=== PATIENT | female | born 1950 | race American Indian/Alaskan Native ===

== ENCOUNTER 2018-02-16 06:23 | Inpatient (IN) | payer MEDICARE, MEDICAID ==
[2018-02-13 09:13] VITALS: BMI 22.6
[2018-02-16] MEDS ORDERED: Succinylcholine 200 mg/10 ml Inj IV ONE (07:09)
[2018-02-16] MEDS ORDERED: Rocuronium 10 mg/ml (5 ml) ONE (07:09)
[2018-02-16] MEDS ORDERED: Propofol 10 mg/ml Inj (20 ML) ONE (07:09)
[2018-02-16] MEDS ORDERED: Neostigmine 1:1000 (1 mg/ml) Inj ONE (07:10)
[2018-02-16] MEDS ORDERED: Lidocaine 4% (Laryng-O-Jet) Kit MM ONE (07:10)
[2018-02-16] MEDS ORDERED: Bacitracin Ointment 30 GM TUBE ONE (07:14)
[2018-02-16] MEDS ORDERED: Absorbable Gelatin Sponge Size 12-7 ONE (07:14)
[2018-02-16] MEDS ORDERED: Thrombin Topical 5,000 Int Units Spray Kit ONE (07:15)
--- NOTE | 2018-02-16 07:15 | CP.PCM.HP ---
History of Present Illness - History of Present Illness History of Present Illness: PMD: Dr Clayton Chief complaint: Left hiop pain The patient was seen and examined in the SDS unit HPI: This is a 67 years old female with hx of HTN, HIV and Osteoarthritis of the left hip. She has failed conservative treatment rot the osteoarthritis which included Physical therapy, Epidural and Analgesics. She has decided for the s urgical treatment of Left Total Hip replacement. PMH: HTN; Osteoporesis; HIV+ve, Osteoarthritis of the left hip; CVA with no sequelas; Cataract; back pain; Gastritis; left hand Neuropathy? PSH: Epidural SH: Former smoker; No illegal drug use; No alcohol FH: States: No known family hx Allergies: PCN Medication: Reviewed Present on Admission - Present on Admission Any Indicators Present on Admission: No History of DVT/PE: No History of Uncontrolled Diabetes: No Urinary Catheter: No Decubitus Ulcer Present: No Review of Systems - Constitutional Constitutional: absent: Anorexia, Chills, Fatigue, Fever, Headache - EENT Eyes: Requires Corrective Lenses. absent: Blurred Vision, Diplopia, Floaters Ears: absent: Decreased Hearing, Ear Discharge, Tinnitus Nose/Mouth/Throat: absent: Epistaxis, Nasal Congestion, Nasal Discharge, Sinus Pain, Sinus Pressure - Cardiovascular Cardiovascular: absent: Chest Pain, Dyspnea, Edema - Respiratory Respiratory: absent: Cough, Dyspnea, Wheezing - Gastrointestinal Gastrointestinal: absent: Abdominal Pain, Constipation, Diarrhea, Nausea, Vomiting - Genitourinary Genitourinary: absent: Dysuria, Flank Pain, Urinary Frequency - Musculoskeletal Musculoskeletal: Arthralgias, Back Pain. absent: Numbness - Integumentary Integumentary: absent: Pruritus, Rash, Skin Ulcer, Sores, Striae, Swelling - Neurological Neurological: absent: Confusion, Dizziness, Focal Weakness, Headaches - Psychiatric Psychiatric: absent: Anxiety, Depression, Panic Attacks - Endocrine Endocrine: absent: Palpitations, Polydipsia, Polyphagia, Polyuria - Hematologic/Lymphatic Hematologic: absent: Easy Bleeding, Easy Bruising Past Patient History - Past Medical History & Family History Past Medical History?: Yes - Past Social History Smoking Status: Former Smoker Chewing Tobacco Use: No Cigar Use: No - CARDIAC Hx Cardiac Disorders: Yes Hx Hypertension: Yes - PULMONARY Hx Respiratory Disorders: No - NEUROLOGICAL Hx Neurological Disorder: Yes HX Cerebrovascular Accident: Yes (2016--no problems) - HEENT Hx HEENT Problems: Yes Hx Cataracts: Yes - RENAL Hx Chronic Kidney Disease: No - ENDOCRINE/METABOLIC Hx Endocrine Disorders: No - HEMATOLOGICAL/ONCOLOGICAL Hx Blood Disorders: Yes Hx Blood Transfusions: No Hx Human Immunodeficiency Virus (HIV): Yes - INTEGUMENTARY Hx Dermatological Problems: No - MUSCULOSKELETAL/RHEUMATOLOGICAL Hx Musculoskeletal Disorders: Yes Hx Arthritis: (left hand) Hx Back Pain: Yes (lower) Hx Osteoporosis: Yes - GASTROINTESTINAL Hx Gastrointestinal Disorders: Yes Hx Gastritis: Yes - GENITOURINARY/GYNECOLOGICAL Hx Genitourinary Disorders: No - PSYCHIATRIC Hx Emotional Abuse: No Hx Physical Abuse: No - SURGICAL HISTORY Hx Surgeries: Yes Other/Comment: epidurals - ANESTHESIA Hx Anesthesia: Yes Hx Anesthesia Reactions: No Has any member of the family had a problem w/ anesthesia?: No Meds Allergies/Adverse Reactions: Allergies Allergy/AdvReac Type Severity Reaction Status Date / Time Penicillins Allergy SWELLING Verified 02/16/18 06:37 Physical Exam - Constitutional Appears: No Acute Distress - Head Exam Head Exam: ATRAUMATIC, NORMAL INSPECTION, NORMOCEPHALIC - Eye Exam Eye Exam: EOMI, Normal appearance Pupil Exam: NORMAL ACCOMODATION, PERRL - ENT Exam ENT Exam: Mucous Membranes Moist, Normal Exam, Normal External Ear Exam - Neck Exam Neck exam: Positive for: Full Rom, Normal Inspection. Negative for: Lymphadenopathy, Tenderness - Respiratory Exam Respiratory Exam: Clear to Auscultation Bilateral. absent: Rales, Rhonchi, Wheezes - Cardiovascular Exam Cardiovascular Exam: REGULAR RHYTHM, RRR, +S1, +S2. absent: Gallop, JVD - GI/Abdominal Exam GI & Abdominal Exam: Normal Bowel Sounds, Soft. absent: Mass, Organomegaly, Tenderness - Rectal Exam Rectal Exam: Deferred - Extremities Exam Extremities exam: Positive for: full ROM, normal inspection. Negative for: calf tenderness, pedal edema - Back Exam Back exam: FULL ROM, NORMAL INSPECTION. absent: CVA tenderness (L), CVA tenderness (R) - Neurological Exam Neurological exam: Alert, CN II-XII Intact, Oriented x3, Reflexes Normal - Psychiatric Exam Psychiatric exam: Normal Affect, Normal Mood - Skin Skin Exam: Dry, Intact, Normal Color, Warm Results - Vital Signs Recent Vital Signs: Last Vital Signs Temp 97.8 F 02/16/18 07:06 Pulse 69 02/16/18 07:11 Resp 18 02/16/18 07:06 BP 129/75 02/16/18 07:06 Pulse Ox 97 02/16/18 07:06 - Labs Result Diagrams: 02/16/18 07:16 Assessment & Plan - Assessment and Plan (Free Text) Assessment: #. Osteoarthritis of the left Hip #. HTN #. HIV #. Osteoporesis Plan: 67 years old female with hx of HTN, HIV and Osteoarthritis of the left hip. She has failed conservative treatment rot the osteoarthritis which included Physical therapy, Epidural and Analgesics. She has decided for the surgical treatment of Left Total Hip replacement. #. Osteoarthritis of the left Hip - Consult Orthopedic Dr Su - Orthopedic Management - Pain Management - OT/PT #. HTN - Enalapril/HCTZ to start post surgery - Metoprolol - follow Blood Pressure #. HIV+ve - Etravirine/Raltegravir post surgery #. Alendranate #. DVT prophylaxis with Lovenox #. Code Status: full - Date & Time Date: 02/16/18 Time: 07:15
--- NOTE | 2018-02-16 07:29 | CP.PCM.CON ---
History of Present Illness - History of Present Illness History of Present Illness: Orthopedic consult: Dr. Su Patient is a 67 y/o female with PMH of HTN, HLD and HIV presents for elective left FRANCISCO JAVIER. She has experienced L hip pain since August 2017 which has progressed and limited her daily activities, especially walking. Her pain is severe, intermittent and dull in quality. She has failed conservative measures such as PT and oral medications. She denies any radiation of pain/numbness/tingling. She denies any CP/SOB/N/V/D/fever/melena/dysuria. She denies any cardiac/thromboembolic events in the past. Review of Systems - Review of Systems All systems: reviewed and no additional remarkable complaints except Review of Systems: as per HPI Past Patient History - Past Medical History & Family History Past Medical History?: Yes Past Family History: Reviewed and not pertinent - Past Social History Smoking Status: Former Smoker Alcohol: None Drugs: Denies - CARDIAC Hx Cardiac Disorders: Yes Hx Hypertension: Yes - PULMONARY Hx Respiratory Disorders: No - NEUROLOGICAL Hx Neurological Disorder: Yes HX Cerebrovascular Accident: Yes (2015--no problems) - HEENT Hx HEENT Problems: Yes Hx Cataracts: Yes - RENAL Hx Chronic Kidney Disease: No - ENDOCRINE/METABOLIC Hx Endocrine Disorders: No - HEMATOLOGICAL/ONCOLOGICAL Hx Blood Disorders: Yes Hx Blood Transfusions: No Hx Human Immunodeficiency Virus (HIV): Yes - INTEGUMENTARY Hx Dermatological Problems: No - MUSCULOSKELETAL/RHEUMATOLOGICAL Hx Musculoskeletal Disorders: Yes Hx Arthritis: (left hand) Hx Back Pain: Yes (lower) Hx Osteoporosis: Yes - GASTROINTESTINAL Hx Gastrointestinal Disorders: Yes Hx Gastritis: Yes - GENITOURINARY/GYNECOLOGICAL Hx Genitourinary Disorders: No - PSYCHIATRIC Hx Emotional Abuse: No Hx Physical Abuse: No - SURGICAL HISTORY Hx Surgeries: Yes Other/Comment: epidurals - ANESTHESIA Hx Anesthesia: Yes Hx Anesthesia Reactions: No Has any member of the family had a problem w/ anesthesia?: No Meds Allergies/Adverse Reactions: Allergies Allergy/AdvReac Type Severity Reaction Status Date / Time Penicillins Allergy SWELLING Verified 02/16/18 06:37 - Medications Medications: as per Med rec Physical Exam - Constitutional Appears: Well, No Acute Distress - Head Exam Head Exam: ATRAUMATIC, NORMOCEPHALIC - Eye Exam Eye Exam: EOMI, Normal appearance, PERRL - ENT Exam ENT Exam: Mucous Membranes Moist - Respiratory Exam Respiratory Exam: NORMAL BREATHING PATTERN - Cardiovascular Exam Cardiovascular Exam: +S1, +S2 - GI/Abdominal Exam GI & Abdominal Exam: Soft. absent: Tenderness - Extremities Exam Additional comments: L hip: +tenderness lateral hip and groin painful ROM sensation intact SP/DP/TN motor intact EHl/FHL/TA/G/Q/HS pedal pulses intact comps soft NT b/l - Neurological Exam Neurological exam: Alert, Oriented x3 - Psychiatric Exam Psychiatric exam: Normal Affect, Normal Mood - Skin Skin Exam: Normal Color, Warm Results - Vital Signs Recent Vital Signs: Last Vital Signs Temp 97.8 F 02/16/18 07:06 Pulse 69 02/16/18 07:11 Resp 18 02/16/18 07:06 BP 129/75 02/16/18 07:06 Pulse Ox 97 02/16/18 07:06 - Labs Result Diagrams: 02/16/18 07:16 Assessment & Plan (1) Osteoarthritis of left hip Assessment and Plan: -OR today for L FRANCISCO JAVIER with Dr. Su -admit to Hospitalist -NPO -risks/benefits/alternatives were explained to the patient who understands and agrees to proceed with above procedure -above d/w Dr. Su in agreement Status: Acute
[2018-02-16] MEDS ORDERED: Metoprolol Succinate 25 mg XL Tab PO ONE (07:35)
[2018-02-16 07:41] LABS: BASO % 0.6 % (0.0-2.0); EOS # 0.2 K/uL (0.0-0.7); HEMOGLOBIN 12.4 g/dL (12.0-16.0); LYMPH # 3.2 K/uL (1.0-4.3); LYMPH % 39.5 % (20.0-40.0); MEAN CELL VOLUME 81.1 fl (81.0-99.0); MEAN CORPUSCULAR HEMOGLOBIN 26.1 pg (27.0-31.0); MEAN CORPUSCULAR HGB CONC 32.3 g/dL (33.0-37.0); MEAN PLATELET VOLUME 8.7 fl (7.2-11.7); MONO # 0.5 K/uL (0.0-0.8); MONO % 6.5 % (0.0-10.0); NEUT # 4.1 K/uL (1.8-7.0); NEUT % 51.4 % (50.0-75.0); NRBC % 0.2 % (0.0-0.0); RBC 4.72 Mil/uL (3.80-5.20); RED CELL DISTRIBUTION WIDTH 15.4 % (11.5-14.5)
[2018-02-16] MEDS ORDERED: Morphine 1 mg/ml preservative-free Inj(Duramorph) ONE (07:44)
[2018-02-16] MEDS ORDERED: Tranexamic Acid 1,000 MG in Sodium Chloride 0.9% 100 ML IVPB SCH (07:45)
[2018-02-16] MEDS ORDERED: EPINEPHrine 1 mg/ml (1:1000) Inj ONE (08:26)
[2018-02-16] MEDS ORDERED: Lactated Ringer's 1,000 ML IV ONE (08:56)
[2018-02-16] MEDS ORDERED: ePHEDrine 50 mg/ml Inj ONE (08:57)
[2018-02-16] MEDS ORDERED: Sodium Chloride 0.9% 1,000 ML IV ONE (09:06)
[2018-02-16] MEDS ORDERED: Dexamethasone 4 mg/1 ml ONE (09:11)
[2018-02-16] MEDS ORDERED: Phenylephrine 10 mg/ml Inj ONE (09:27)
[2018-02-16] MEDS ORDERED: Thrombin Topical 5,000 Int Units Spray Kit TOP ONE ×2 (09:33)
[2018-02-16] MEDS ORDERED: Absorbable Gelatin Sponge Size 12-7 TP ONE (09:33)
--- NOTE | 2018-02-16 10:47 | PCM.SURG1 ---
Surgeon's Initial Post Op Note - Surgeon's Notes Surgeon: [employer] Underwriter: CHARISSE Elena, 2nd assist Jackson Bishop Type of Anesthesia: General Endo, Spinal Anesthesia Administered By: Dr Aiden kirby Pre-Operative Diagnosis: Avasular Necrosis left Hip. Osteoarthritis L Hip Operative Findings: as above. severe synpovits L hip Post-Operative Diagnosis: as above Operation Performed: Left THR anterior approach dual mobility technology. arthromy synovectomy. release iliopsoas tendon. autograft bone graft/allograft bone graft. computer navigation Specimen/Specimens Removed: cartilage/synovium/bone Estimated Blood Loss: EBL {In ML}: 102 Blood Products Given: N/A Drains Used: No Drains Post-Op Condition: Good Date of Surgery/Procedure: 02/16/18 Time of Surgery/Procedure: 08:50 (tiem in room/anaetsheisa indcution time 7:45)
[2018-02-16] MEDS ORDERED: HYDROmorphone 0.5 mg/0.5 ml ISec IVP PRN (11:18)
[2018-02-16] MEDS ORDERED: Dexamethasone 4 mg/1 ml IVP PRN (11:18)
[2018-02-16] MEDS ORDERED: Lactated Ringer's 1,000 ML IV SCH (11:30)
[2018-02-16] MEDS: Lactated Ringer's 1,000 ML IV SCH ×2 (12:40→23:57)
--- NOTE | 2018-02-16 12:54 | RAD ---
Date of service: 02/16/2018 PROCEDURE: Radiographs left hip HISTORY: s/p L FRANCISCO JAVIER COMPARISON: None TECHNIQUE: Standard protocol for this study/examination. FINDINGS: Satisfactory position alignment of components left FRANCISCO JAVIER postoperative findings in the soft tissues at and subjacent to the surgical site. IMPRESSION: Satisfactory postoperative status.
--- NOTE | 2018-02-16 13:05 | RAD ---
Date of service: 02/16/2018 PROCEDURE: Fluoroscopy up to 1 hr. HISTORY: LEFT HIP COMPARISON: None TECHNIQUE: Standard protocol for this study/examination. FINDINGS: Total fluoroscopic time (continuous mode) utilized during the procedure 9.9 (seconds). Total exam DLP: 0.93 (mGy). IMPRESSION: Less than 1 hr fluoroscopic assistance provided during performance of the procedure.
[2018-02-16] MEDS: Clindamycin 600mg/50ml NS 600 MG/50 ML BAG IVPB SCH (17:08)
[2018-02-16] MEDS: Oxycodone/Acetaminophen 5/325 mg Tab PO PRN (23:55)
[2018-02-17] MEDS: Clindamycin 600mg/50ml NS 600 MG/50 ML BAG IVPB SCH (01:10)
[2018-02-17 05:23] LABS: MEAN CORPUSCULAR HGB CONC 32.5 g/dL (33.0-37.0); RBC 3.45 Mil/uL (3.80-5.20); RED CELL DISTRIBUTION WIDTH 14.8 % (11.5-14.5); WHITE BLOOD COUNT 12.3 K/uL (4.8-10.8)
[2018-02-17 05:27] LABS: ALB/GLOB RATIO 1.1 (1.0-2.1); CALCIUM 8.1 mg/dL (8.4-10.2)
--- NOTE | 2018-02-17 07:05 | CP.PCM.PN ---
Subjective - Date & Time of Evaluation Date of Evaluation: 02/17/18 Time of Evaluation: 07:05 - Subjective Subjective: Patient seen and examined at bedside comfortable. Pain is well controlled. Notes that she has been on long standing pain medication for chronic back pain. Having difficulty urinating and hypotensive. Denies CP/SOB/N/V/D/fever. Objective - Vital Signs/Intake and Output Vital Signs (last 24 hours): Temp Pulse Resp BP Pulse Ox 98.0 F 99 H 19 90/55 L 96 02/17/18 04:38 02/17/18 03:21 02/17/18 03:21 02/17/18 03:21 02/17/18 03:21 Intake and Output: 02/17/18 02/17/18 06:59 18:59 Output Total 500 Balance -500 - Medications Medications: Current Medications Acetaminophen (Tylenol 325mg Tab) 650 mg PO Q4 PRN PRN Reason: Fever 101 degrees fahrenheit Last Admin: 02/17/18 03:38 Dose: 650 mg Alendronate Sodium (Fosamax) 70 mg PO SUN [facility] Clindamycin HCl (Cleocin) 300 mg PO BID [facility]; Protocol Docusate Sodium (Colace) 100 mg PO BID [facility] Last Admin: 02/16/18 16:27 Dose: 100 mg Enalapril Maleate (Vasotec) 10 mg PO DAILY [facility] Enoxaparin Sodium (Lovenox) 40 mg SC DAILY [facility]; Protocol Ferrous Sulfate (Feosol) 325 mg PO TID [facility] Last Admin: 02/16/18 16:26 Dose: 325 mg Folic Acid (Folic Acid) 1 mg PO DAILY [facility] Last Admin: 02/16/18 16:26 Dose: 1 mg Gabapentin (Neurontin) 200 mg PO DAILY [facility] Home Med (Etravirine [Intelence]) 200 mg PO BID [facility] Hydrochlorothiazide (Hydrodiuril) 25 mg PO DAILY [facility] Tranexamic Acid 1,000 mg/ (Sodium Chloride) 110 mls @ 10 mls/min IVPB STAT [facility] Stop: 02/17/18 07:55 Lactated Ringer's (Lactated Ringer's) 1,000 mls @ 100 mls/hr IV .Q10H [facility] Last Admin: 02/16/18 23:57 Dose: 100 mls/hr Metoprolol Succinate (Toprol Xl) 25 mg PO DAILY [facility] Morphine Sulfate (Morphine) 2 mg IVP Q4 PRN PRN Reason: Pain, severe (8-10) Last Admin: 02/17/18 04:42 Dose: 2 mg Ondansetron HCl (Zofran Inj) 2 mg IVP Q6 PRN PRN Reason: Nausea/Vomiting Oxycodone/Acetaminophen (Percocet 5/325 Mg Tab) 2 tab PO Q4 PRN PRN Reason: Pain, severe (8-10) Stop: 02/19/18 11:25 Last Admin: 02/16/18 23:55 Dose: 2 tab Pantoprazole Sodium (Protonix Ec Tab) 40 mg PO DAILY [facility] Raltegravir (Isentress) 400 mg PO BID [facility]; Protocol - Labs Labs: 02/17/18 04:25 02/17/18 04:25 - Extremities Exam Additional comments: L hip: Dressings CDI, mild swelling, no drainage, no erythema sensation intact SP/DP/TN motor intact EHL/FHL/TA/G pedal pulses intact comps soft NT b/l Assessment and Plan (1) Osteoarthritis of left hip Assessment & Plan: POD#1 s/p L FRANCISCO JAVIER -pain control -medical management for low BP and urinary retention -DVT ppx -PT/OT WBAT -discharge planning for tomorrow if medically cleared -above d/w Dr. Su in agreement Status: Acute
[2018-02-17] MEDS: Metoprolol Succinate 25 mg XL Tab PO SCH (08:37)
[2018-02-17] MEDS: Pantoprazole 40 mg EC Tab PO SCH (08:38)
[2018-02-17] MEDS: Enoxaparin 40 mg Syringe SC SCH (08:41)
[2018-02-17] MEDS: Lactated Ringer's 1,000 ML IV SCH ×2 (08:42→23:24)
[2018-02-17] MEDS ORDERED: HYDROCHLOROTHIAZIDE PO SCH (09:00)
[2018-02-17] MEDS ORDERED: ENALAPRIL PO SCH (09:00)
[2018-02-17] MEDS ORDERED: ETRAVIRINE 200 MG PO SCH (09:00)
[2018-02-17] MEDS ORDERED: [UNRECOGNIZED DRUG - OTHER] PO SCH (09:00)
--- NOTE | 2018-02-17 09:38 | CP.PCM.PN ---
Addendum entered and electronically signed by Des Donis MD 02/17/18 12:54: Patient seen and examined bedside . All chart and clinical data reviewed . Case discussed with resident . Agree with assessment and plan 67 y/o F with PMH HIV, HTN and OA admitted for left total hip replacement . Today post op day 1, complains of pain to left hip. BP 93/59 HR 95 Tmax 101.6 last 12 hours WBC 12k With urinary retention post op secondary to anesthesia and narcotics> 700 ml.Will do straight cath and monitor closely Continue IVF for Bp support Promote incentive spirometry use Leukocytosis and fever most likely reactive and secondary to atelectasis Continue pain management Pt eval appreciated . Patient will benefit from SHARAN .will refer to facilities Monitor H& H closely due drop in Hgb during surgery ( hgb 12 -- 9) Lovenox for DVT prophylaxis Ortho on board following Original Note: Subjective - Date & Time of Evaluation Date of Evaluation: 02/17/18 Time of Evaluation: 09:40 - Subjective Subjective: 67 y/o female was seen and evaluated 1 day s/p Left hip surgery with Dr. Su. Patient states the pain is minimal at this time and well controlled with pain medication. Patient states she did not void today. Patient denies any fever, nausea, vomiting, SOB, or chest pain. Patient lives alone on the 3rd floor of a building with an elevator. Objective - Vital Signs/Intake and Output Vital Signs (last 24 hours): Temp Pulse Resp BP Pulse Ox 100.0 F H 99 H 20 98/61 L 95 02/17/18 07:54 02/17/18 07:54 02/17/18 07:54 02/17/18 08:37 02/17/18 07:54 Intake and Output: 02/17/18 02/17/18 06:59 18:59 Output Total 500 Balance -500 - Medications Medications: Current Medications Acetaminophen (Tylenol 325mg Tab) 650 mg PO Q4 PRN PRN Reason: Fever 101 degrees fahrenheit Last Admin: 02/17/18 03:38 Dose: 650 mg Alendronate Sodium (Fosamax) 70 mg PO SUN [facility] Clindamycin HCl (Cleocin) 300 mg PO BID [facility]; Protocol Last Admin: 02/17/18 08:36 Dose: 300 mg Docusate Sodium (Colace) 100 mg PO BID [facility] Last Admin: 02/17/18 08:40 Dose: 100 mg Enalapril Maleate (Vasotec) 10 mg PO DAILY [facility] Last Admin: 02/17/18 08:37 Dose: 10 mg Enoxaparin Sodium (Lovenox) 40 mg SC DAILY [facility]; Protocol Last Admin: 02/17/18 08:41 Dose: 40 mg Ferrous Sulfate (Feosol) 325 mg PO TID [facility] Last Admin: 02/17/18 08:40 Dose: 325 mg Folic Acid (Folic Acid) 1 mg PO DAILY [facility] Last Admin: 02/17/18 08:41 Dose: 1 mg Gabapentin (Neurontin) 200 mg PO DAILY [facility] Last Admin: 02/17/18 08:38 Dose: 200 mg Home Med (Etravirine [Intelence]) 200 mg PO BID [facility] Hydrochlorothiazide (Hydrodiuril) 25 mg PO DAILY [facility] Last Admin: 02/17/18 08:38 Dose: 25 mg Lactated Ringer's (Lactated Ringer's) 1,000 mls @ 100 mls/hr IV .Q10H [facility] Last Admin: 02/17/18 08:42 Dose: Not Given Metoprolol Succinate (Toprol Xl) 25 mg PO DAILY [facility] Last Admin: 02/17/18 08:37 Dose: Not Given Morphine Sulfate (Morphine) 2 mg IVP Q4 PRN PRN Reason: Pain, severe (8-10) Last Admin: 02/17/18 08:49 Dose: 2 mg Ondansetron HCl (Zofran Inj) 2 mg IVP Q6 PRN PRN Reason: Nausea/Vomiting Oxycodone/Acetaminophen (Percocet 5/325 Mg Tab) 2 tab PO Q4 PRN PRN Reason: Pain, severe (8-10) Stop: 02/19/18 11:25 Last Admin: 02/16/18 23:55 Dose: 2 tab Pantoprazole Sodium (Protonix Ec Tab) 40 mg PO DAILY [facility] Last Admin: 02/17/18 08:38 Dose: 40 mg Raltegravir (Isentress) 400 mg PO BID [facility]; Protocol Last Admin: 02/17/18 08:37 Dose: 400 mg - Labs Labs: 02/17/18 04:25 02/17/18 04:25 - Constitutional Appears: Well, Non-toxic, No Acute Distress - Head Exam Head Exam: ATRAUMATIC, NORMOCEPHALIC - Eye Exam Eye Exam: PERRL - ENT Exam ENT Exam: Mucous Membranes Moist - Respiratory Exam Respiratory Exam: Clear to Ausculation Bilateral, NORMAL BREATHING PATTERN. absent: Rales, Rhonchi, Wheezes, Respiratory Distress - Cardiovascular Exam Cardiovascular Exam: REGULAR RHYTHM, +S1, +S2 - GI/Abdominal Exam GI & Abdominal Exam: Soft, Normal Bowel Sounds. absent: Distended, Firm, Guarding, Rigid - Extremities Exam Additional comments: Patient able to wiggle her digits, and NV intact, dressing noted to the left leg- C/D/I - Neurological Exam Neurological Exam: Alert, Awake, Oriented x3 - Psychiatric Exam Psychiatric exam: Normal Affect, Normal Mood - Skin Skin Exam: Normal Color Assessment and Plan - Assessment and Plan (Free Text) Assessment: 67 y/o female seen and evaluated 1 day s/p left hip surgery due to Osteoarthritis L Hip Plan: 1) Osteoarthritis of the left Hip, Total Hip Replacement POD #1 - pain management- pain is well controlled at this time - Physical therapy evaluated patient- recommended SHARAN 2) Acute blood loss anemia - monitor H/H - will repeat H/H next day AM 3) Urinary Retention - Bladder US scan showed 700 cc of urine - Straight catheter ordered - f/u Ordered UA 4) Hypotensive Episodes - All blood pressure medications were held, continue hold if blood pressure is below 110 systolic - Bolus X 1 given and will monitor for any changes 5) HIV+ - Etravirine/Raltegravir post surgery - Alendronate 6) DVT prophylaxis - Lovenox 40 mg SC Daily 7) Diet - Heart healthy diet
--- NOTE | 2018-02-17 11:48 | OP ---
PROCEDURE DATE: 02/16/2018 PREOPERATIVE DIAGNOSIS: Severe osteoarthritis of the left hip. POSTOPERATIVE DIAGNOSIS: Severe osteoarthritis of the left hip. PROCEDURES: 1. Left total hip replacement arthroplasty, anterior approach. 2. Femoral neck osteotomy. 3. Arthrotomy and synovectomy. 4. Release of iliopsoas tendon. 5. Autograft bone graft to the acetabulum. 6. Computer navigation with accelerometer. SURGEON: Tej Su MD NATIONAL SALES: Sweta Villeda, certified registered nursing senior office assistant. SECOND MOP MAKER: Jackson Bishop PA-C. ANESTHESIA: Spinal and general anesthesia, Dr. Aiden Ramos. COMPLICATIONS: No complications. DRAINS: No drains. OPERATIVE INDICATIONS: Greer Wilkins is a 67-year-old woman, HIV positive, who presents with a vascular necrosis in the left hip, severe pain and restricted range of motion. The patient has seen multiple opinions; pros, cons, risks, and benefits of surgical approach were discussed. The possibility of mechanical failure, infection, thromboembolic disease, possibility of secondary or tertiary surgery was discussed. The patient can no longer withstand the discomfort. OPERATIVE PROCEDURE: After having obtained informed consent in the above fashion, after having identified side, site and procedure, and a critical pause/time-out, after the satisfactory induction of the anesthetic, the patient was identified as Greer Wilkins. She was placed in supine position with all bony prominences well padded in usual fashion for anterior approach hip replacement surgery. Under the surgeon's direction, the fluoroscope was positioned. Video images were generated, therapeutic decisions were made therefrom. This having been accomplished, after sterilely prepping and draping, after adjusting the computer navigation accelerometer based, an incision was described superficial to the tensor fascia femoris muscle, one fingerbreadth distal to the anterior superior iliac spine and four fingerbreadths distal to that. A skin incision after sterilely prepping and draping was carried down through the skin and subcutaneous tissue. The tensor fascia femoris muscle was taken down from the investing fascia. This having been accomplished, the Weitlaner retractor was placed. The posterior aspect of the rectus femoris was identified. Hemostasis controlled, and the Medacta Weitlaner retractor was placed deeper. The fascia was divided. The anterior branch of the lateral femoral circumflex vessels were identified, and they were controlled with suture ligature. This having been accomplished, fat superficial to the capsule was excised, and at this point in time, a capsulotomy was accomplished extending from the tensor fascia femoris to the medial border to the area of the intertrochanteric tubercle and elevated laterally. This was controlled with a stay suture. This having been accomplished, hemostasis was controlled with Aquamantys. The femoral neck osteotomy was planned intraoperatively and preoperatively femoral neck osteotomy was accomplished. This having been accomplished with external rotation of the lower extremity, and with two turns of traction, the osteotomy site was developed. A corkscrew was placed into the femoral head and the femoral head was removed. This having been accomplished, the acetabulum was exposed. The Charnley retractor was placed deeper, and the acetabulum was exposed. Acetabular exposure having been accomplished, attention was now turned to computer navigation. Two #11 *------* were placed in the anterior superior iliac spine. This having been accomplished, the accelerometer and camera were placed in the appropriate fashion; and this having been accomplished, the verification of position was offered by navigation. At this point, the frontal plane of the pelvis was registered using the registration anteriorly. The anterior superior iliac spine of the left and the right plane having been registered, at this point in time, the labrum was excised. The acetabular was exposed. Reaming commenced. The head measures 44, the goal is for the acetabular component 50 mm. This having been accomplished, reaming having been denuded of articular cartilage. This was saved as autograft. The trialing was accomplished. The cup was found to be acceptable. Computer navigation and accelerometer technology was accomplished, and the cup was placed at 38 to 40 degrees of abduction, and approximately 18 degrees of anteversion. Reaming having been accomplished, autograft bone grafting was accomplished to the acetabulum, and the acetabular component was impacted. Verification of position was accomplished on computer navigation, 40 degrees of abduction and 15 degrees of anteversion. This having been accomplished, the cup having been impacted, the femur was exposed. The iliopsoas tendon was released, and at this point in time, the retractor was placed in the area of the greater trochanter. The femur was exposed. The bridge of bone between the neck and trochanter was removed. Femoral release has then been accomplished, the canal was found. Sequential broaching to a #3 femoral component. Trial was accomplished with a 28-mm neutral head, and the appropriate 50 mm outer bearing. At this point in time, the real prosthesis was introduced and verification of position was offered on AP image intensification views. This having been accomplished, the outer bearing was affixed. The hip was reduced, found to be stable in all planes. Hemostasis controlled. Closures in layers with interrupted 0 Quill; Vicryl and Quill and danilo for skin. Compression dressing was applied. The pins have been removed from the iliac crest for the computer navigation, and thus closed with interrupted Vicryl and nylon. Compression dressing having been applied. Tej Su MD
--- NOTE | 2018-02-17 13:40 | PQF ---
PROVIDER RESPONSE TEXT: Asymptomatic HIV REVIEWER QUERY TEXT: HIV Clarification and Associated Conditions HIV (Human immunodeficiency virus) is documented in the medical record. Please specify the type Such as: -- Symptomatic HIV/ AIDS -- Asymptomatic HIV -- Other, please specify The patient's Clinical Indicators include: Documentation of a history of HIV. Medication includes: Isentress and ( Intelence pending) Query created by: Therese Martin on 02/17/2018 1:28 PM Electronically signed by: Carlos Ireland 02/17/2018 1:37 PM
[2018-02-17 13:55] LABS: SQUAMOUS EPITHIAL < 1 /hpf (0-5); URINE BILIRUBIN NEGATIVE (NEGATIVE); URINE BLOOD NEGATIVE (NEGATIVE); URINE CLARITY CLEAR (Clear); URINE COLOR YELLOW (YELLOW); URINE GLUCOSE (UA) NEG (Normal); URINE LEUKOCYTE ESTERASE NEG Leu/uL (Negative); URINE PROTEIN NEGATIVE (NEGATIVE); URINE UROBILINOGEN 0.2-1.0 mg/dL (0.2-1.0)
[2018-02-17] MEDS: Oxycodone/Acetaminophen 5/325 mg Tab PO PRN ×2 (14:05→18:49)
[2018-02-18 06:13] LABS: BASO % 0.3 % (0.0-2.0); EOS % 0.1 % (0.0-4.0); HEMOGLOBIN 8.7 g/dL (12.0-16.0); LYMPH # 2.2 K/uL (1.0-4.3); LYMPH % 15.2 % (20.0-40.0); MEAN CELL VOLUME 79.6 fl (81.0-99.0); MEAN CORPUSCULAR HGB CONC 32.7 g/dL (33.0-37.0); MONO # 1.4 K/uL (0.0-0.8); MONO % 9.6 % (0.0-10.0); NEUT % 74.8 % (50.0-75.0); RBC 3.35 Mil/uL (3.80-5.20); WHITE BLOOD COUNT 14.8 K/uL (4.8-10.8)
[2018-02-18 06:18] LABS: CALCIUM 8.2 mg/dL (8.4-10.2)
[2018-02-18] MEDS ORDERED: Povidone Iodine Topical 10% Sol ONE (07:05)
[2018-02-18 07:58] VITALS: O2SAT 96
[2018-02-18] MEDS: Oxycodone/Acetaminophen 5/325 mg Tab PO PRN (08:30)
[2018-02-18] MEDS: Pantoprazole 40 mg EC Tab PO SCH (08:31)
[2018-02-18] MEDS: Metoprolol Succinate 25 mg XL Tab PO SCH (08:36)
[2018-02-18] MEDS: Enoxaparin 40 mg Syringe SC SCH (08:49)
--- NOTE | 2018-02-18 11:07 | RAD ---
HISTORY: Fever COMPARISON: No prior. TECHNIQUE: Chest PA and lateral FINDINGS: LINES AND TUBES: None. LUNG AND PLEURA: The lungs are well inflated and clear. No pleural effusion or pneumothorax. HEART AND MEDIASTINUM: The heart is not enlarged. The hilar and mediastinal contours are within normal limits. SKELETAL STRUCTURES: The bony structures are within normal limits for the patient's age. VISUALIZED UPPER ABDOMEN: Normal. OTHER FINDINGS: None. IMPRESSION: No active pulmonary disease.
--- NOTE | 2018-02-18 11:56 | CP.PCM.PN ---
Subjective - Date & Time of Evaluation Date of Evaluation: 02/18/18 Time of Evaluation: 11:40 - Subjective Subjective: 67 yo woman s/p left THR, POD #2, is referred for pain management. Prior to the surgery, patient was under the management of a pain specialist and receiving Oxycodone 30mg q8h by Dr. Briones. She's also on Neurontin as well. Since surgery, she's been relatively comfortable on Morphine 2mg IV and Percocet 10/325mg and able to tolerate PT. The pain is mainly in the left hip, over the surgical site. Review of [place] [employer] aware confirmed that patient has been getting #90 tablets of Oxycodone 30mg from her pain physician. Objective - Vital Signs/Intake and Output Vital Signs (last 24 hours): Temp Pulse Resp BP Pulse Ox 102.0 F H 108 H 20 101/56 L 96 02/18/18 07:57 02/18/18 07:57 02/18/18 07:57 02/18/18 08:36 02/18/18 07:57 - Medications Medications: Current Medications Acetaminophen (Tylenol 325mg Tab) 650 mg PO Q4 PRN PRN Reason: Fever 101 degrees fahrenheit Last Admin: 02/17/18 03:38 Dose: 650 mg Alendronate Sodium (Fosamax) 70 mg PO SUN [facility] Clindamycin HCl (Cleocin) 300 mg PO BID [facility]; Protocol Last Admin: 02/18/18 08:31 Dose: 300 mg Docusate Sodium (Colace) 100 mg PO BID [facility] Last Admin: 02/18/18 08:31 Dose: 100 mg Enalapril Maleate (Vasotec) 10 mg PO DAILY [facility] Last Admin: 02/18/18 08:35 Dose: 10 mg Enoxaparin Sodium (Lovenox) 40 mg SC DAILY [facility]; Protocol Last Admin: 02/18/18 08:49 Dose: 40 mg Ferrous Sulfate (Feosol) 325 mg PO TID [facility] Last Admin: 02/18/18 08:32 Dose: 325 mg Folic Acid (Folic Acid) 1 mg PO DAILY [facility] Last Admin: 02/18/18 08:34 Dose: 1 mg Gabapentin (Neurontin) 200 mg PO DAILY [facility] Last Admin: 02/18/18 08:34 Dose: 200 mg Home Med (Etravirine [Intelence]) 200 mg PO BID [facility] Hydrochlorothiazide (Hydrodiuril) 25 mg PO DAILY [facility] Last Admin: 02/18/18 08:48 Dose: Not Given Lactated Ringer's (Lactated Ringer's) 1,000 mls @ 100 mls/hr IV .Q10H [facility] Last Admin: 02/17/18 23:24 Dose: 100 mls/hr Metoprolol Succinate (Toprol Xl) 25 mg PO DAILY [facility] Last Admin: 02/18/18 08:36 Dose: Not Given Ondansetron HCl (Zofran Inj) 2 mg IVP Q6 PRN PRN Reason: Nausea/Vomiting Pantoprazole Sodium (Protonix Ec Tab) 40 mg PO DAILY [facility] Last Admin: 02/18/18 08:31 Dose: 40 mg Raltegravir (Isentress) 400 mg PO BID [facility]; Protocol Last Admin: 02/18/18 08:31 Dose: 400 mg - Labs Labs: 02/18/18 05:30 02/18/18 05:30 Assessment and Plan (1) Osteoarthritis of left hip Assessment & Plan: 67 yo woman w/ chronic pain on chronic opioids is s/p left THR. Clinically patient appears to be comfortable on opioid dosage far less than her home dosage. - d/c Morphine IV and Percocet - restart Oxycodone, start at 20mg q6h PRN - if insufficient, can resume 30mg q6h PRN Status: Acute
--- NOTE | 2018-02-18 12:05 | CP.PCM.PN ---
Subjective - Date & Time of Evaluation Date of Evaluation: 02/18/18 Time of Evaluation: 09:00 - Subjective Subjective: Patient seen and examined at bedside. Pain is 7/10 this AM. Tmax 102 this AM. Tolerated PT well. Continues to have urinary retention, multiple straight catheterized. Denies CP/SOB/dizziness. Objective - Vital Signs/Intake and Output Vital Signs (last 24 hours): Temp Pulse Resp BP Pulse Ox 102.0 F H 106 H 20 101/56 L 96 02/18/18 07:57 02/18/18 11:43 02/18/18 07:57 02/18/18 08:36 02/18/18 07:57 - Medications Medications: Current Medications Acetaminophen (Tylenol 325mg Tab) 650 mg PO Q4 PRN PRN Reason: Fever 101 degrees fahrenheit Last Admin: 02/17/18 03:38 Dose: 650 mg Alendronate Sodium (Fosamax) 70 mg PO SUN [facility] Docusate Sodium (Colace) 100 mg PO BID [facility] Last Admin: 02/18/18 08:31 Dose: 100 mg Enalapril Maleate (Vasotec) 10 mg PO DAILY [facility] Last Admin: 02/18/18 08:35 Dose: 10 mg Enoxaparin Sodium (Lovenox) 40 mg SC DAILY [facility]; Protocol Last Admin: 02/18/18 08:49 Dose: 40 mg Ferrous Sulfate (Feosol) 325 mg PO TID [facility] Last Admin: 02/18/18 08:32 Dose: 325 mg Folic Acid (Folic Acid) 1 mg PO DAILY [facility] Last Admin: 02/18/18 08:34 Dose: 1 mg Gabapentin (Neurontin) 200 mg PO DAILY [facility] Last Admin: 02/18/18 08:34 Dose: 200 mg Home Med (Etravirine [Intelence]) 200 mg PO BID [facility] Hydrochlorothiazide (Hydrodiuril) 25 mg PO DAILY [facility] Last Admin: 02/18/18 08:48 Dose: Not Given Lactated Ringer's (Lactated Ringer's) 1,000 mls @ 100 mls/hr IV .Q10H [facility] Last Admin: 02/17/18 23:24 Dose: 100 mls/hr Metoprolol Succinate (Toprol Xl) 25 mg PO DAILY [facility] Last Admin: 02/18/18 08:36 Dose: Not Given Ondansetron HCl (Zofran Inj) 2 mg IVP Q6 PRN PRN Reason: Nausea/Vomiting Oxycodone HCl (Oxycodone Immediate Release Tab) 20 mg PO Q6 PRN PRN Reason: Pain, severe (8-10) Pantoprazole Sodium (Protonix Ec Tab) 40 mg PO DAILY [facility] Last Admin: 02/18/18 08:31 Dose: 40 mg Raltegravir (Isentress) 400 mg PO BID [facility]; Protocol Last Admin: 02/18/18 08:31 Dose: 400 mg - Labs Labs: 02/18/18 05:30 02/18/18 05:30 - Extremities Exam Additional comments: L hip: aquacel dressings CDI, mild swelling, no drainage, no erythema dressings removed revealing wound CDI with danilo sensation intact SP/DP/TN motor intact EHL/FHL/TA/G pedal pulses intact comps soft NT b/l Assessment and Plan (1) Osteoarthritis of left hip Assessment & Plan: POD#1 s/p L FRANCISCO JAVIER -pain control, pain management consult ordered -Fever and leukocytosis typical postoperatively as per Dr. Su, tylenol as needed. Encourage incentive spirometry 10x/hr -Urinary retention as per medicine -DVT ppx -PT/OT WBAT -orthopedically stable for discharge to TCU -above d/w Dr. Su in agreement Status: Acute
--- NOTE | 2018-02-18 12:23 | CP.PCM.DIS ---
Addendum entered and electronically signed by Des Donis MD 02/18/18 14:32: Patient seen and examined bedside . All chart and clinical data reviewed. Case discussed with resident .Agree with assessment and discharge planning to TCU for continuation of physical therapy . s/p left THR day 2 , doing well Anesthesia consulted for pain management , started and oxycodone PRN Tmax 102 -- most likely post op fever . No source of infection identified so far.Venous doppler negative for DVT , CXR - clear,UA clear Blood and urine cultures sent . D/c clindamycin that was started as outpatient for sore throat by her PMD since patient has been taking it for 1 week and has no more complains, no respiratory complains Continue to monitor closely fever curve and WBC trend ( WBC trending up from 8 k -- 14.8 k) Monitor for urinary retention .Consider Piedra placement if patient requires another straight cath Dx; s/p Left THR for OA-- continue PT . Lovenox for DVt prophylaxis, Incentive spirometry , pain management . Ortho following Acute blood loss anemia- on Ferrous sulfate and stool softener Urinary retention post op secondary to anesthesia and narcotics-- promote amb ulation. Consider piedra insertion if unable to void freely Leukocytosis and fever -- most likely post op , reactive . No source of infection identified . Follow up cultures, blood and urine. Check CD4 count Hypertension HIV positive -- resume home [facility] Original Note: Provider - Provider Date of Admission: 02/16/18 08:58 Attending physician: Benny Edouard Primary care physician: Tej Su III, MD Consults: Orthopedic- Dr. Su Infectious Disease- [facility] Time Spent in preparation of Discharge (in minutes): 30 Hospital Course - Lab Results Lab Results: Micro Results 02/17/18 09:05 Blood Blood Culture - Preliminary NO GROWTH AFTER 24 HOURS 02/17/18 09:05 Blood Blood Culture - Preliminary NO GROWTH AFTER 24 HOURS Most Recent Lab Values WBC 14.8 K/uL (4.8-10.8) H 02/18/18 05:30 RBC 3.35 Mil/uL (3.80-5.20) L 02/18/18 05:30 Hgb 8.7 g/dL (12.0-16.0) L 02/18/18 05:30 Hct 26.6 % (34.0-47.0) L 02/18/18 05:30 MCV 79.6 fl (81.0-99.0) L 02/18/18 05:30 MCH 26.0 pg (27.0-31.0) L 02/18/18 05:30 MCHC 32.7 g/dL (33.0-37.0) L 02/18/18 05:30 RDW 15.0 % (11.5-14.5) H 02/18/18 05:30 Plt Count 198 K/uL (130-400) 02/18/18 05:30 MPV 9.0 fl (7.2-11.7) 02/18/18 05:30 Neut % (Auto) 74.8 % (50.0-75.0) 02/18/18 05:30 Lymph % (Auto) 15.2 % (20.0-40.0) L 02/18/18 05:30 [place] % (Auto) 9.6 % (0.0-10.0) 02/18/18 05:30 Eos % (Auto) 0.1 % (0.0-4.0) 02/18/18 05:30 Baso % (Auto) 0.3 % (0.0-2.0) 02/18/18 05:30 Neut # (Auto) 11.0 K/uL (1.8-7.0) H 02/18/18 05:30 Lymph # (Auto) 2.2 K/uL (1.0-4.3) 02/18/18 05:30 [place] # (Auto) 1.4 K/uL (0.0-0.8) H 02/18/18 05:30 Eos # (Auto) 0.0 K/uL (0.0-0.7) 02/18/18 05:30 Baso # (Auto) 0.0 K/uL (0.0-0.2) 02/18/18 05:30 Sodium 135 mmol/l (132-148) 02/18/18 05:30 Potassium 4.1 MMOL/L (3.6-5.0) 02/18/18 05:30 Chloride 100 mmol/L (98-107) 02/18/18 05:30 Carbon Dioxide 28 mmol/L (22-30) 02/18/18 05:30 Anion Gap 11 (10-20) 02/18/18 05:30 BUN 16 mg/dl (7-17) 02/18/18 05:30 Creatinine 1.4 mg/dl (0.7-1.2) H 02/18/18 05:30 Est GFR ( Amer) 45 02/18/18 05:30 Est GFR (Non-Af Amer) 37 02/18/18 05:30 Random Glucose 108 mg/dL (65-105) H 02/18/18 05:30 Calcium 8.2 mg/dL (8.4-10.2) L 02/18/18 05:30 Total Bilirubin 0.5 mg/dl (0.2-1.3) 02/17/18 04:25 AST 36 U/L (14-36) 02/17/18 04:25 ALT 26 U/L (9-52) 02/17/18 04:25 Alkaline Phosphatase 73 U/L (38-126) 02/17/18 04:25 Total Protein 5.8 G/DL (6.3-8.2) L 02/17/18 04:25 Albumin 3.0 g/dL (3.5-5.0) L 02/17/18 04:25 Globulin 2.8 gm/dL (2.2-3.9) 02/17/18 04:25 Albumin/Globulin Ratio 1.1 (1.0-2.1) 02/17/18 04:25 Urine Color Yellow (YELLOW) 02/17/18 13:38 Urine Clarity Clear (Clear) 02/17/18 13:38 Urine pH 6.0 (5.0-8.0) 02/17/18 13:38 Ur Specific [place] 1.014 (1.003-1.030) 02/17/18 13:38 Urine Protein Negative mg/dL (NEGATIVE) 02/17/18 13:38 Urine Glucose (UA) Neg mg/dL (Normal) 02/17/18 13:38 Urine Ketones Negative mg/dL (NEGATIVE) 02/17/18 13:38 Urine Blood Negative (NEGATIVE) 02/17/18 13:38 Urine Nitrate Negative (NEGATIVE) 02/17/18 13:38 Urine Bilirubin Negative (NEGATIVE) 02/17/18 13:38 Urine Urobilinogen 0.2-1.0 mg/dL (0.2-1.0) 02/17/18 13:38 Ur Leukocyte Esterase Neg [place]/uL (Negative) 02/17/18 13:38 Urine RBC (Auto) 2 /hpf (0-3) 10 13:38 Urine Microscopic WBC < 1 /hpf (0-5) 02/17/18 13:38 Ur Squamous Epith Cells < 1 /hpf (0-5) 10 13:38 Blood Type A POSITIVE 02/16/18 07:16 Blood Type Confirm A POSITIVE 02/16/18 07:40 Antibody Screen Negative 02/16/18 07:16 Crossmatch See Detail 02/16/18 07:16 BBK History Checked No verified bt 02/16/18 07:16 - Hospital Course Hospital Course: 67 y/o female was seen and evaluated 2 days s/p Left hip surgery with Dr. Su. Patient states the pain is minimal at this time and well controlled with pain medication. Patient denies any fever, nausea, vomiting, SOB, or chest pain. Patient lives alone on the 3rd floor of a building with an elevator. Patient will be going to TCU Patient reports she has been on Clindamycin for 1 week prior to surgery due to a Strep infection. Patient still unable to void freely. Patient CXR negative, LE US negative for DVT, and UA negative. 1) Osteoarthritis of the left Hip, Total Hip Replacement POD #2 - pain management- pain is well controlled at this time - Continue with Incentive Spirometry - Physical therapy in TCU - Patient to follow up with Dr. Su upon discharge 2) Acute blood loss anemia likely seocnadry - H/H: 8.7//6 - Ferrous Sulfate 325 mg PO TID 3) Urinary Retention likely secondary to anesthesia - continue to monitor 4) Leukocytosis likely reactive and secondary to atelectasis - Urinalyisis- negative - Infectious Disease consulted- follow up recommendations 5) Hypertension - chronic, controlled - continue home meds 6) HIV+ ev - levels undetectable - continue home regimen 7) DVT prophylaxis - Lovenox 40 mg SC Daily - Date & Time of H&P Date of H&P: 02/18/18 Time of H&P: 12:04 Discharge Exam - Head Exam Head Exam: ATRAUMATIC, NORMOCEPHALIC - Eye Exam Eye Exam: EOMI, Normal appearance, PERRL - ENT Exam ENT Exam: Mucous Membranes Moist - Neck Exam Neck exam: Full Rom - Respiratory Exam Respiratory Exam: Clear to PA & Lateral, UNREMARKABLE. absent: Rales, Rhonchi, Wheezes - Cardiovascular Exam Cardiovascular Exam: REGULAR RHYTHM, RRR, +S1, +S2 - GI/Abdominal Exam GI & Abdominal Exam: Normal Bowel Sounds, Soft. absent: Firm, Guarding - Extremities Exam Extremities exam: calf tenderness Additional comments: left lower extremity pain and tenderness - Back Exam Back exam: NORMAL INSPECTION. absent: CVA tenderness (L), CVA tenderness (R) - Neurological Exam Neurological exam: Alert, Oriented x3 - Psychiatric Exam Psychiatric exam: Normal Affect, Normal Mood - Skin Skin Exam: Normal Color Discharge Plan - Follow Up Plan Condition: GOOD Disposition: REHAB FACILITY/REHAB UNIT Patient education suggested?: Yes Referrals: Tej Su III, MD [Primary Care Provider] -
[2018-02-18] MEDS: oxyCODONE 10 mg Immediate Release Tab PO PRN ×2 (14:09→18:33)
[2018-02-18 15:57] VITALS: BP 101/64; PULSE 93; RESP 18; TEMP 98.5
--- NOTE | 2018-02-18 16:02 | US ---
Date of service: 02/17/2018 HISTORY: r/o DVT. PRIORS: None. FINDINGS: 2-D, color and duplex Doppler analysis of the left lower extremity venous circulation using routine protocol from the femoral veins through the popliteal veins. Venous compressibility: Normal. Flow and augmentation patterns: Normal. Visualized veins upper third of calf: Normal. Hutchins cyst: None. IMPRESSION: No sonographic or Doppler evidence for DVT in left lower extremity.
== END 2018-02-18 18:39 | DRG 470 ==
LOC: H.OPSURG 06:23 → H.MEDSURG1 08:58
PROVIDERS: ADMIT Internal Medicine; ATTEND Internal Medicine
PROC: 0SBB0ZZ Excision of Left Hip Joint, Open Approach (ICD-10-PCS; 2018-02-16)
PROC: 0SNB0ZZ Release Left Hip Joint, Open Approach (ICD-10-PCS; 2018-02-16)
PROC: 8E0YXBZ Computer Assisted Procedure of Lower Extremity (ICD-10-PCS; 2018-02-16)
PROC: 0SRB0JZ Replacement of Left Hip Joint with Synthetic Substitute, Open Approach (ICD-10-PCS; principal; 2018-02-16 07:45)
DX: M16.12 Unilateral primary osteoarthritis, left hip (principal); D62 Acute posthemorrhagic anemia; J98.11 Atelectasis; M87.9 Osteonecrosis, unspecified; I10 Essential (primary) hypertension; Z21 Asymptomatic human immunodeficiency virus [HIV] infection status; R33.0 Drug induced retention of urine; G89.29 Other chronic pain; Z86.73 Personal history of transient ischemic attack (TIA), and cerebral infarction without residual deficits; Z87.891 Personal history of nicotine dependence; E78.5 Hyperlipidemia, unspecified; M81.0 Age-related osteoporosis without current pathological fracture; Z88.0 Allergy status to penicillin; K29.70 Gastritis, unspecified, without bleeding; I95.9 Hypotension, unspecified; T41.205A Adverse effect of unspecified general anesthetics, initial encounter; T40.605A Adverse effect of unspecified narcotics, initial encounter; R50.82 Postprocedural fever

== ENCOUNTER 2018-02-18 15:34 | Inpatient (IN) | payer OTHER, MEDICAID ==
[2018-02-18 18:56] VITALS: BMI 23.4
[2018-02-18] MEDS ORDERED: Tuberculin 5 Units/0.1 ml Inj ID ONE (21:36)
[2018-02-19] MEDS: oxyCODONE 10 mg Immediate Release Tab PO PRN ×3 (01:22→15:31)
[2018-02-19 06:59] LABS: HEMOGLOBIN 8.8 g/dL (12.0-16.0); MEAN CELL VOLUME 80.1 fl (81.0-99.0); MEAN CORPUSCULAR HGB CONC 32.5 g/dL (33.0-37.0); RBC 3.39 Mil/uL (3.80-5.20); RED CELL DISTRIBUTION WIDTH 15.6 % (11.5-14.5); WHITE BLOOD COUNT 13.8 K/uL (4.8-10.8)
[2018-02-19 07:14] LABS: ALB/GLOB RATIO 0.9 (1.0-2.1); CALCIUM 8.2 mg/dL (8.4-10.2)
[2018-02-19] MEDS: Metoprolol Succinate 25 mg XL Tab PO SCH (08:41)
[2018-02-19] MEDS: Enoxaparin 40 mg Syringe SC SCH (08:42)
[2018-02-19] MEDS: Pantoprazole 40 mg EC Tab PO SCH (08:44)
[2018-02-19] MEDS ORDERED: HYDROCHLOROTHIAZIDE PO SCH (09:00)
[2018-02-19] MEDS ORDERED: ENALAPRIL PO SCH (09:00)
[2018-02-19] MEDS ORDERED: [UNRECOGNIZED DRUG - OTHER] PO SCH (09:00)
[2018-02-19] MEDS ORDERED: Patient's Own Med (Omeprazole [Omeprazole] 40 MG) PO SCH (09:00)
--- NOTE | 2018-02-19 09:05 | CP.PCM.PN ---
Subjective - Date & Time of Evaluation Date of Evaluation: 02/19/18 Time of Evaluation: 08:00 - Subjective Subjective: Patient seen and examined at bedside comfortable. Pain is well controlled. Seen by spray ii painter and medications adjusted. Transferred to TCU yesterday. Notes that she has been able to urinate in commode since last night. No new complaints. Denies CP/SOB/dizziness. Objective - Vital Signs/Intake and Output Vital Signs (last 24 hours): Temp Pulse Resp BP Pulse Ox 97.9 F 90 18 101/54 L 98 02/19/18 08:43 02/19/18 08:43 02/19/18 08:43 02/19/18 08:43 02/19/18 08:43 - Medications Medications: Current Medications Acetaminophen (Tylenol 325mg Tab) 650 mg PO Q4 PRN PRN Reason: Fever 101 degrees fahrenheit Last Admin: 02/19/18 01:27 Dose: 650 mg Alendronate Sodium (Fosamax) 70 mg PO SUN [facility] Aspirin (Ecotrin) 81 mg PO DAILY [facility] Last Admin: 02/19/18 08:41 Dose: 81 mg Docusate Sodium (Colace) 100 mg PO BID [facility] Last Admin: 02/19/18 08:39 Dose: 100 mg Enoxaparin Sodium (Lovenox) 40 mg SC DAILY [facility]; Protocol Last Admin: 02/19/18 08:42 Dose: 40 mg Ferrous Sulfate (Feosol) 325 mg PO TID [facility] Last Admin: 02/19/18 08:44 Dose: 325 mg Folic Acid (Folic Acid) 1 mg PO DAILY [facility] Last Admin: 02/19/18 08:40 Dose: 1 mg Gabapentin (Neurontin) 400 mg PO DAILY [facility] Last Admin: 02/19/18 08:40 Dose: 400 mg Home Med (Enalapril/Hydrochlorothiazide [Enalapril-Hctz 10-25 Mg Tablet]) 1 each PO DAILY [facility] Home Med (Etravirine [Intelence]) 200 mg PO BID [facility] Metoprolol Succinate (Toprol Xl) 25 mg PO DAILY [facility] Last Admin: 02/19/18 08:41 Dose: 25 mg Oxycodone HCl (Oxycodone Immediate Release Tab) 20 mg PO Q6 PRN PRN Reason: Pain, severe (8-10) Last Admin: 02/19/18 01:22 Dose: 20 mg Pantoprazole Sodium (Protonix Ec Tab) 40 mg PO DAILY [facility] Last Admin: 02/19/18 08:44 Dose: 40 mg Raltegravir (Isentress) 400 mg PO BID [facility]; Protocol Last Admin: 02/19/18 08:40 Dose: 400 mg - Labs Labs: 02/19/18 06:52 02/19/18 06:52 - Extremities Exam Additional comments: L hip: dressings CDI, mild swelling, no drainage, no erythema sensation intact SP/DP/TN motor intact EHL/FHL/TA/G pedal pulses intact comps soft NT b/l Assessment and Plan (1) Status post left hip replacement Assessment & Plan: POD#3 s/p L FRANCISCO JAVIER -pain controlled -Encourage incentive spirometry 10x/hr -Urinary retention resolved -DVT ppx -PT/OT WBAT -orthopedically stable -above d/w Dr. Su in agreement Status: Acute
--- NOTE | 2018-02-19 17:24 | CP.PCM.HP ---
History of Present Illness - History of Present Illness History of Present Illness: Chief Complaint : transferred to TCU for Physical and occupational therapy s/p Left THR HPI: 67 y/o lady HIV + ( accdg to pt undetectable viral load , on antiretrovirals ), HTN and Hx of severe OA . Patient underwent Left Hip Arthroplasty , anterior approach on 02/[address] Su. Post op, patient did well , her pain is under control and she participated with physical therapy. PT rec TCU placement. She had post op urinary retention likely due to anesthesia which has resolved. At present , patient is voiding freely, denies dysuria, no CP, no SOB, she has a slight cough. She complains of constipation but denies abd pain. Present on Admission - Present on Admission Any Indicators Present on Admission: No Review of Systems - Review of Systems All systems: reviewed and no additional remarkable complaints except - Constitutional Constitutional: Fever (low grade ). absent: Headache, Lethargy, Malaise, Night Sweats, Weakness - EENT Eyes: absent: Change in Vision Ears: Decreased Hearing (chronic ). absent: Ear Pain Nose/Mouth/Throat: Sore Throat (slight sore throat). absent: Nasal Congestion, Nasal Discharge, Sinus Pain, Sinus Pressure - Cardiovascular Cardiovascular: absent: Chest Pain, Leg Edema, Lightheadedness, Palpitations, Paroxysmal Nocturnal Dyspnea - Respiratory Respiratory: Cough (occasional cough). absent: Dyspnea, Hemoptysis, Dyspnea on Exertion, Wheezing, Excessive Mucous Production - Gastrointestinal Gastrointestinal: Constipation, Nausea. absent: Abdominal Pain Additional comments: vomited once this am ( however pt states that this happens to her even at home ) - Genitourinary Genitourinary: absent: Difficulty Urinating, Dysuria, Hematuria, Nocturia Additional comments: had urinary retention post op but voiding freely now - Musculoskeletal Additional comments: left hip pain controlled by analgesics - Integumentary Integumentary: absent: Rash, Skin Ulcer, Sores - Neurological Neurological: absent: Dizziness, Focal Weakness, Headaches - Psychiatric Psychiatric: Memory Loss. absent: Anxiety, Depression - Endocrine Endocrine: absent: Polydipsia, Polyphagia, Polyuria - Hematologic/Lymphatic Hematologic: absent: Easy Bleeding, Easy Bruising Past Patient History - Infectious Disease Hx of Infectious Diseases: None - Tetanus Immunizations Tetanus Immunization: Unknown - Past Medical History & Family History Past Medical History?: Yes Past Family History: Reviewed and not pertinent - Past Social History Smoking Status: Former Smoker Alcohol: None Drugs: Denies Home Situation {Lives}: Alone Domestic Violence: Negative - CARDIAC Hx Cardiac Disorders: Yes Hx Hypertension: Yes - PULMONARY Hx Respiratory Disorders: No - NEUROLOGICAL Hx Neurological Disorder: Yes HX Cerebrovascular Accident: Yes (2016--no problems) - HEENT Hx HEENT Problems: Yes Hx Cataracts: Yes - RENAL Hx Chronic Kidney Disease: No - ENDOCRINE/METABOLIC Hx Endocrine Disorders: No - HEMATOLOGICAL/ONCOLOGICAL Hx Blood Disorders: Yes Hx Blood Transfusions: No Hx Human Immunodeficiency Virus (HIV): Yes - INTEGUMENTARY Hx Dermatological Problems: No - MUSCULOSKELETAL/RHEUMATOLOGICAL Hx Musculoskeletal Disorders: Yes Hx Arthritis: (left hand) Hx Back Pain: Yes (lower) Hx Falls: Yes Hx Osteoporosis: Yes - GASTROINTESTINAL Hx Gastrointestinal Disorders: Yes Hx Gastritis: Yes - GENITOURINARY/GYNECOLOGICAL Hx Genitourinary Disorders: No - PSYCHIATRIC Hx Emotional Abuse: No Hx Physical Abuse: No Hx Substance Use: No - SURGICAL HISTORY Hx Surgeries: Yes Hx Orthopedic Surgery: Yes (L THR Feb 17, 2018) Other/Comment: epidurals - ANESTHESIA Hx Anesthesia: Yes Hx Anesthesia Reactions: No Meds Allergies/Adverse Reactions: Allergies Allergy/AdvReac Type Severity Reaction Status Date / Time Penicillins Allergy SWELLING Verified 02/18/18 18:55 Physical Exam - Constitutional Appears: No Acute Distress - Head Exam Head Exam: NORMAL INSPECTION, NORMOCEPHALIC - Eye Exam Eye Exam: EOMI, Normal appearance Pupil Exam: NORMAL ACCOMODATION - ENT Exam ENT Exam: Mucous Membranes Moist, Normal External Ear Exam - Neck Exam Neck exam: Positive for: Full Rom. Negative for: Meningismus - Respiratory Exam Respiratory Exam: Rhonchi, NORMAL BREATHING PATTERN. absent: Rales, Wheezes, Respiratory Distress - Cardiovascular Exam Cardiovascular Exam: REGULAR RHYTHM, +S1, +S2 - GI/Abdominal Exam GI & Abdominal Exam: Normal Bowel Sounds, Soft - Extremities Exam Extremities exam: Positive for: normal capillary refill, pedal pulses present. Negative for: calf tenderness Additional comments: Left anterioe hip with dressing - Back Exam Back exam: FULL ROM. absent: CVA tenderness (L), CVA tenderness (R) - Neurological Exam Neurological exam: Alert, CN II-XII Intact, Oriented x3, Reflexes Normal - Psychiatric Exam Psychiatric exam: Normal Affect, Normal Mood - Skin Skin Exam: Dry, Normal Color, Warm Results - Vital Signs Recent Vital Signs: Last Vital Signs Temp 97.9 F 02/19/18 08:43 Pulse 90 02/19/18 08:43 Resp 18 02/19/18 08:43 BP 101/54 L 02/19/18 08:43 Pulse Ox 98 02/19/18 08:43 - Labs Result Diagrams: 02/19/18 06:52 02/19/18 06:52 Labs: Laboratory Results - last 24 hr 02/19/18 02/19/18 06:52 06:52 WBC 13.8 H RBC 3.39 L Hgb 8.8 L Hct 27.1 L MCV 80.1 L MCH 26.0 L MCHC 32.5 L RDW 15.6 H Plt Count 205 Sodium 136 Potassium 4.0 Chloride 101 Carbon Dioxide 27 Anion Gap 12 BUN 25 H Creatinine 2.0 H Est GFR ( Amer) 30 Est GFR (Non-Af Amer) 25 Random Glucose 108 H Calcium 8.2 L Total Bilirubin 0.7 AST 38 H ALT 19 Alkaline Phosphatase 83 Total Protein 6.2 L Albumin 3.0 L Globulin 3.2 Albumin/Globulin Ratio 0.9 L Assessment & Plan (1) Status post left hip replacement Status: Acute (2) Osteoarthritis of left hip Status: Chronic (3) HTN (hypertension) Status: Chronic (4) HIV (human immunodeficiency virus infection) Status: Chronic (5) IGNACIO (acute kidney injury) Status: Acute - Assessment and Plan (Free Text) Assessment: 67 y/o with hx of HTN, HIV +, Severe OA, Had Left THR, transferred to TCU for PT/OT. (1) Status post left hip replacement Status: Acute Pain controlled did well with PT- continue PT/OT Pain Mgt DVT proph (2) Osteoarthritis of left hip Status: Chronic Pain mgt (3) HTN (hypertension) Status: Chronic hold HCTZ and ALEJANDRA due to IGNACIO and dehydration cont Metoprolol (4) HIV (human immunodeficiency virus infection) Status: Chronic Pt states she has undetectable Viral load cont Anti Retrovirals (5) IGNACIO (acute kidney injury) likely due to Dehydration and Retention Status: Acute IVF hydration Encourage oral hydration rpt BMP in am Pt now voiding freely 6. Constipation Colace BID Dulcolax prn 7. DVT proph Lovenox
[2018-02-19 17:26] VITALS: RESP 20
[2018-02-19] MEDS ORDERED: Bisacodyl 5mg EC Tab PO ONE (17:28)
[2018-02-19] MEDS: ETRAVIRINE 200 MG PO SCH (17:28)
[2018-02-19] MEDS ORDERED: Sodium Chloride 0.9% 1,000 ML IV SCH (17:30)
[2018-02-20 06:12] LABS: HEMOGLOBIN 7.6 g/dL (12.0-16.0); MEAN CELL VOLUME 80.5 fl (81.0-99.0); MEAN CORPUSCULAR HEMOGLOBIN 26.4 pg (27.0-31.0); MEAN CORPUSCULAR HGB CONC 32.8 g/dL (33.0-37.0); RBC 2.89 Mil/uL (3.80-5.20); RED CELL DISTRIBUTION WIDTH 15.3 % (11.5-14.5); WHITE BLOOD COUNT 11.3 K/uL (4.8-10.8)
[2018-02-20 06:23] LABS: CALCIUM 8.1 mg/dL (8.4-10.2)
[2018-02-20] MEDS: oxyCODONE 10 mg Immediate Release Tab PO PRN ×3 (06:37→20:07)
[2018-02-20] MEDS: Enoxaparin 40 mg Syringe SC SCH (09:06)
[2018-02-20] MEDS: ETRAVIRINE 200 MG PO SCH ×2 (09:07→17:30)
[2018-02-20] MEDS: Metoprolol Succinate 25 mg XL Tab PO SCH (09:07)
[2018-02-20] MEDS: Pantoprazole 40 mg EC Tab PO SCH (09:08)
--- NOTE | 2018-02-20 13:43 | CP.PCM.PN ---
Subjective - Date & Time of Evaluation Date of Evaluation: 02/20/18 Time of Evaluation: 13:40 - Subjective Subjective: Patient states pain in hip is controlled. Tolerating PT well. Offers no complaints. Denies CP/SOB/dizziness/palpitations PT notes patient dragging her left leg a bit with ambulation. Objective - Vital Signs/Intake and Output Vital Signs (last 24 hours): Temp Pulse Resp BP Pulse Ox 98.2 F 93 H 20 107/65 98 02/20/18 09:27 02/20/18 09:27 02/20/18 09:27 02/20/18 09:27 02/20/18 09:27 - Medications Medications: Current Medications Acetaminophen (Tylenol 325mg Tab) 650 mg PO Q4 PRN PRN Reason: Fever 101 degrees fahrenheit Last Admin: 02/20/18 01:50 Dose: 650 mg Docusate Sodium (Colace) 100 mg PO BID [facility] Last Admin: 02/20/18 09:08 Dose: 100 mg Enoxaparin Sodium (Lovenox) 40 mg SC DAILY [facility]; Protocol Last Admin: 02/20/18 09:06 Dose: 40 mg Ferrous Sulfate (Feosol) 325 mg PO TID [facility] Last Admin: 02/20/18 13:32 Dose: 325 mg Folic Acid (Folic Acid) 1 mg PO DAILY [facility] Last Admin: 02/20/18 09:08 Dose: 1 mg Gabapentin (Neurontin) 400 mg PO DAILY [facility] Last Admin: 02/20/18 09:09 Dose: 400 mg Home Med [facility] Last Admin: 02/20/18 09:07 Dose: 200 mg Iron Sucrose 100 mg/ Sodium (Chloride) 105 mls @ 105 mls/hr IVPB DAILY [facility] Stop: 02/21/18 09:59 Last Admin: 02/20/18 11:25 Dose: 105 mls/hr Lactulose (Enulose) 20 gm PO DAILY PRN PRN Reason: Constipation Last Admin: 02/20/18 09:21 Dose: 20 gm Metoprolol Succinate (Toprol Xl) 25 mg PO DAILY [facility] Last Admin: 02/20/18 09:07 Dose: 25 mg Ondansetron HCl (Zofran Inj) 4 mg IVP Q6 PRN PRN Reason: Nausea/Vomiting Oxycodone HCl (Oxycodone Immediate Release Tab) 20 mg PO Q6 PRN PRN Reason: Pain, severe (8-10) Last Admin: 02/20/18 12:48 Dose: 20 mg Pantoprazole Sodium (Protonix Ec Tab) 40 mg PO DAILY [facility] Last Admin: 02/20/18 09:08 Dose: 40 mg Raltegravir (Isentress) 400 mg PO BID [facility]; Protocol Last Admin: 02/20/18 09:07 Dose: 400 mg - Labs Labs: 02/20/18 05:50 02/20/18 05:50 - Extremities Exam Additional comments: LLE: noted decreased sensation to med/lat lower leg and medial aspect of foot 4/5 DF on left, 5/5 great toe ext, 4/5 knee ext with lag, unable to flex left hip while seated actively right side normal calves soft NT neghomans +DP/PT pulses no facial droop No LUE weakness noted Assessment and Plan (1) Osteoarthritis of left hip Assessment & Plan: s/p THR labs noted, patient asymptomatic, VSS, defer to medical team for management patient with history of back pain, per Dr. Su patient had preexisting weakness PT/OT monitor VTE proph d/w Dr. Su, agrees with above Status: Chronic
[2018-02-20] MEDS: Magnesium Hydroxide Susp 30 ml UD PO STA (21:31)
[2018-02-21] MEDS: oxyCODONE 10 mg Immediate Release Tab PO PRN ×4 (02:26→21:30)
[2018-02-21 07:54] LABS: HEMOGLOBIN 8.2 g/dL (12.0-16.0); MEAN CELL VOLUME 80.4 fl (81.0-99.0); MEAN CORPUSCULAR HEMOGLOBIN 26.4 pg (27.0-31.0); MEAN CORPUSCULAR HGB CONC 32.9 g/dL (33.0-37.0); RBC 3.11 Mil/uL (3.80-5.20); RED CELL DISTRIBUTION WIDTH 15.1 % (11.5-14.5); WHITE BLOOD COUNT 9.8 K/uL (4.8-10.8)
[2018-02-21] MEDS: Enoxaparin 40 mg Syringe SC SCH (08:10)
[2018-02-21] MEDS: ETRAVIRINE 200 MG PO SCH ×2 (08:12→18:10)
[2018-02-21] MEDS: Metoprolol Succinate 25 mg XL Tab PO SCH (08:13)
[2018-02-21] MEDS: Pantoprazole 40 mg EC Tab PO SCH (08:20)
[2018-02-22] MEDS: oxyCODONE 10 mg Immediate Release Tab PO PRN ×3 (07:11→19:32)
[2018-02-22] MEDS: Enoxaparin 40 mg Syringe SC SCH (08:23)
[2018-02-22] MEDS: ETRAVIRINE 200 MG PO SCH ×2 (08:23→17:03)
[2018-02-22] MEDS: Metoprolol Succinate 25 mg XL Tab PO SCH (08:24)
[2018-02-22] MEDS: Pantoprazole 40 mg EC Tab PO SCH (08:28)
[2018-02-22] MEDS ORDERED: ALENDRONATE 70 MG TAB PO SCH (09:00)
[2018-02-22] MEDS ORDERED: Bisacodyl 5mg EC Tab PO ONE (18:47)
[2018-02-23] MEDS: oxyCODONE 10 mg Immediate Release Tab PO PRN ×4 (01:22→21:05)
[2018-02-23] MEDS: ETRAVIRINE 200 MG PO SCH ×2 (08:00→17:48)
[2018-02-23] MEDS: Enoxaparin 40 mg Syringe SC SCH (08:01)
[2018-02-23] MEDS: Pantoprazole 40 mg EC Tab PO SCH (08:02)
[2018-02-23] MEDS: Metoprolol Succinate 25 mg XL Tab PO SCH (08:03)
--- NOTE | 2018-02-23 13:51 | CP.PCM.PN ---
Subjective - Date & Time of Evaluation Date of Evaluation: 02/23/18 Time of Evaluation: 08:00 - Subjective Subjective: Patient seen and examined at bedside comfortable. Pain is well controlled. No acute events. Denies CP/SOB/fever/dizziness. Objective - Vital Signs/Intake and Output Vital Signs (last 24 hours): Temp Pulse Resp BP Pulse Ox 98.2 F 95 H 20 128/58 L 97 02/23/18 07:54 02/23/18 08:03 02/23/18 07:54 02/23/18 08:03 02/23/18 07:54 - Medications Medications: Current Medications Acetaminophen (Tylenol 325mg Tab) 650 mg PO Q4 PRN PRN Reason: Fever 101 degrees fahrenheit Last Admin: 02/22/18 02:09 Dose: 650 mg Docusate Sodium (Colace) 100 mg PO BID [facility] Last Admin: 02/23/18 07:59 Dose: 100 mg Enoxaparin Sodium (Lovenox) 40 mg SC DAILY [facility]; Protocol Last Admin: 02/23/18 08:01 Dose: 40 mg Ferrous Sulfate (Feosol) 325 mg PO TID [facility] Last Admin: 02/23/18 12:20 Dose: 325 mg Folic Acid (Folic Acid) 1 mg PO DAILY [facility] Last Admin: 02/23/18 08:01 Dose: 1 mg Gabapentin (Neurontin) 400 mg PO DAILY [facility] Last Admin: 02/23/18 08:02 Dose: 400 mg Home Med (Etravirine [Intelence]) 200 mg PO BIDPC [facility] Last Admin: 02/23/18 08:00 Dose: 200 mg Lactulose (Enulose) 20 gm PO DAILY PRN PRN Reason: Constipation Last Admin: 02/22/18 08:23 Dose: 20 gm Metoprolol Succinate (Toprol Xl) 25 mg PO DAILY [facility] Last Admin: 02/23/18 08:03 Dose: 25 mg Ondansetron HCl (Zofran Inj) 4 mg IVP Q6 PRN PRN Reason: Nausea/Vomiting Oxycodone HCl (Oxycodone Immediate Release Tab) 20 mg PO Q6 PRN PRN Reason: Pain, severe (8-10) Last Admin: 02/23/18 08:06 Dose: 20 mg Pantoprazole Sodium (Protonix Ec Tab) 40 mg PO DAILY [facility] Last Admin: 02/23/18 08:02 Dose: 40 mg Raltegravir (Isentress) 400 mg PO BID [facility]; Protocol Last Admin: 02/23/18 08:01 Dose: 400 mg - Labs Labs: 02/21/18 06:50 02/20/18 05:50 - Extremities Exam Additional comments: L hip: dressings CDI, mild swelling, no drainage, no erythema sensation intact SP/DP/TN motor intact EHL/FHL/G, 4/5 TA pedal pulses intact comps soft NT b/l Assessment and Plan (1) Status post left hip replacement Assessment & Plan: POD#7 s/p L FRANCISCO JAVIER -DVT ppx -PT/OT WBAT -orthopedically stable -above d/w Dr. Su in agreement Status: Acute
[2018-02-24] MEDS: Enoxaparin 40 mg Syringe SC SCH (08:14)
[2018-02-24] MEDS: ETRAVIRINE 200 MG PO SCH ×2 (08:14→17:07)
[2018-02-24] MEDS: Metoprolol Succinate 25 mg XL Tab PO SCH (08:15)
[2018-02-24] MEDS: Pantoprazole 40 mg EC Tab PO SCH (08:16)
--- NOTE | 2018-02-24 08:44 | CP.PCM.PN ---
Subjective - Date & Time of Evaluation Date of Evaluation: 02/24/18 Time of Evaluation: 07:15 - Subjective Subjective: Patient seen and examined at bedside comfortable. Pain well controlled. No new complaints. Denies CP/SOB/fever/GUPTA. Objective - Vital Signs/Intake and Output Vital Signs (last 24 hours): Temp Pulse Resp BP Pulse Ox 99.1 F 91 H 20 119/63 97 02/23/18 20:16 02/23/18 20:16 02/23/18 20:16 02/23/18 20:16 02/23/18 20:16 - Medications Medications: Current Medications Acetaminophen (Tylenol 325mg Tab) 650 mg PO Q4 PRN PRN Reason: Fever 101 degrees fahrenheit Last Admin: 02/22/18 02:09 Dose: 650 mg Docusate Sodium (Colace) 100 mg PO BID [facility] Last Admin: 02/24/18 08:15 Dose: 100 mg Enoxaparin Sodium (Lovenox) 40 mg SC DAILY [facility]; Protocol Last Admin: 02/24/18 08:14 Dose: 40 mg Ferrous Sulfate (Feosol) 325 mg PO TID [facility] Last Admin: 02/23/18 17:48 Dose: 325 mg Folic Acid (Folic Acid) 1 mg PO DAILY [facility] Last Admin: 02/24/18 08:14 Dose: 1 mg Gabapentin (Neurontin) 400 mg PO DAILY [facility] Last Admin: 02/24/18 08:15 Dose: 400 mg [facility] Med [facility]Intelence[facility] Last Admin: 02/24/18 08:14 Dose: 200 mg Lactulose (Enulose) 20 gm PO DAILY PRN PRN Reason: Constipation Last Admin: 02/22/18 08:23 Dose: 20 gm Metoprolol Succinate (Toprol Xl) 25 mg PO DAILY [facility] Last Admin: 02/24/18 08:15 Dose: 25 mg Ondansetron HCl (Zofran Inj) 4 mg IVP Q6 PRN PRN Reason: Nausea/Vomiting Oxycodone HCl (Oxycodone Immediate Release Tab) 20 mg PO Q6 PRN PRN Reason: Pain, severe (8-10) Last Admin: 02/23/18 21:05 Dose: 20 mg Pantoprazole Sodium (Protonix Ec Tab) 40 mg PO DAILY [facility] Last Admin: 02/24/18 08:16 Dose: 40 mg Raltegravir (Isentress) 400 mg PO BID [facility]; Protocol Last Admin: 02/24/18 08:15 Dose: 400 mg - Labs Labs: 02/21/18 06:50 02/20/18 05:50 - Extremities Exam Additional comments: L hip: dressings CDI, mild swelling, no drainage, no erythema sensation intact SP/DP/TN motor intact EHL/FHL/G, +4/5 TA pedal pulses intact comps soft NT b/l Assessment and Plan (1) Status post left hip replacement Assessment & Plan: POD#8 s/p L FRANCISCO JAVIER -DVT ppx -PT/OT WBAT -orthopedically stable -above d/w Dr. Su in agreement Status: Acute
[2018-02-24] MEDS: oxyCODONE 10 mg Immediate Release Tab PO PRN ×2 (08:59→17:09)
--- NOTE | 2018-02-24 10:11 | CP.PCM.PN ---
Subjective - Date & Time of Evaluation Date of Evaluation: 02/24/18 Time of Evaluation: 10:10 - Subjective Subjective: Patient seen, working with PT, ambulating with walker no acute distress Objective - Vital Signs/Intake and Output Vital Signs (last 24 hours): Temp Pulse Resp BP Pulse Ox 98.2 F 86 20 126/59 L 94 L 02/24/18 09:59 02/24/18 09:59 02/24/18 09:59 02/24/18 09:59 02/24/18 09:59 - Medications Medications: Current Medications Acetaminophen (Tylenol 325mg Tab) 650 mg PO Q4 PRN PRN Reason: Fever 101 degrees fahrenheit Last Admin: 02/22/18 02:09 Dose: 650 mg Docusate Sodium (Colace) 100 mg PO BID [facility] Last Admin: 02/24/18 08:15 Dose: 100 mg Enoxaparin Sodium (Lovenox) 40 mg SC DAILY [facility]; Protocol Last Admin: 02/24/18 08:14 Dose: 40 mg Ferrous Sulfate (Feosol) 325 mg PO TID [facility] Last Admin: 02/23/18 17:48 Dose: 325 mg Folic Acid (Folic Acid) 1 mg PO DAILY [facility] Last Admin: 02/24/18 08:14 Dose: 1 mg Gabapentin (Neurontin) 400 mg PO DAILY [facility] Last Admin: 02/24/18 08:15 Dose: 400 mg Home Med (Etravirine [Intelence]) 200 mg PO BIDPC [facility] Last Admin: 02/24/18 08:14 Dose: 200 mg Lactulose (Enulose) 20 gm PO DAILY PRN PRN Reason: Constipation Last Admin: 02/22/18 08:23 Dose: 20 gm Metoprolol Succinate (Toprol Xl) 25 mg PO DAILY [facility] Last Admin: 02/24/18 08:15 Dose: 25 mg Ondansetron HCl (Zofran Inj) 4 mg IVP Q6 PRN PRN Reason: Nausea/Vomiting Oxycodone HCl (Oxycodone Immediate Release Tab) 20 mg PO Q6 PRN PRN Reason: Pain, severe (8-10) Last Admin: 02/24/18 08:59 Dose: 20 mg Pantoprazole Sodium (Protonix Ec Tab) 40 mg PO DAILY [facility] Last Admin: 02/24/18 08:16 Dose: 40 mg Raltegravir (Isentress) 400 mg PO BID [facility]; Protocol Last Admin: 02/24/18 08:15 Dose: 400 mg - Labs Labs: 02/21/18 06:50 02/20/18 05:50 - Constitutional Appears: Well - Head Exam Head Exam: ATRAUMATIC - Eye Exam Eye Exam: EOMI Pupil Exam: PERRL - ENT Exam ENT Exam: Mucous Membranes Moist - Neck Exam Neck Exam: Full ROM - Respiratory Exam Respiratory Exam: Clear to Ausculation Bilateral - Cardiovascular Exam Cardiovascular Exam: REGULAR RHYTHM - Neurological Exam Neurological Exam: Alert, Awake, CN II-XII Intact, Oriented x3 Assessment and Plan - Assessment and Plan (Free Text) Assessment: Status post left hip replacement s/p L FRANCISCO JAVIER -DVT ppx -PT/OT WBAT -orthopedically stable HTN controlled HIV continue with current therapy
[2018-02-25] MEDS: ETRAVIRINE 200 MG PO SCH ×2 (08:29→17:00)
[2018-02-25] MEDS: Metoprolol Succinate 25 mg XL Tab PO SCH (08:30)
[2018-02-25] MEDS: Enoxaparin 40 mg Syringe SC SCH (08:30)
[2018-02-25] MEDS: Pantoprazole 40 mg EC Tab PO SCH (08:30)
[2018-02-25] MEDS: oxyCODONE 10 mg Immediate Release Tab PO PRN ×2 (08:33→18:59)
--- NOTE | 2018-02-25 11:56 | CP.PCM.PN ---
Subjective - Date & Time of Evaluation Date of Evaluation: 02/25/18 Time of Evaluation: 10:00 - Subjective Subjective: Patient seen and examined OOB to chair comfortable. Pain well controlled with PO meds. No new complaints. Objective - Vital Signs/Intake and Output Vital Signs (last 24 hours): Temp Pulse Resp BP Pulse Ox 97.2 F L 78 20 122/69 100 02/25/18 08:16 02/25/18 08:16 02/25/18 08:16 02/25/18 08:16 02/25/18 08:16 - Medications Medications: Current Medications Acetaminophen (Tylenol 325mg Tab) 650 mg PO Q4 PRN PRN Reason: Fever 101 degrees fahrenheit Last Admin: 02/22/18 02:09 Dose: 650 mg Docusate Sodium (Colace) 100 mg PO BID [facility] Last Admin: 02/25/18 08:30 Dose: 100 mg Enoxaparin Sodium (Lovenox) 40 mg SC DAILY [facility]; Protocol Last Admin: 02/25/18 08:30 Dose: 40 mg Ferrous Sulfate (Feosol) 325 mg PO TID [facility] Last Admin: 02/25/18 08:30 Dose: 325 mg Folic Acid (Folic Acid) 1 mg PO DAILY [facility] Last Admin: 02/25/18 08:30 Dose: 1 mg Gabapentin (Neurontin) 400 mg PO DAILY [facility] Last Admin: 02/25/18 08:31 Dose: 400 mg Home Med ([facility] [Intelence]) [facility] Last Admin: 02/25/18 08:29 Dose: 200 mg Lactulose (Enulose) 20 gm PO DAILY PRN PRN Reason: Constipation Last Admin: 02/25/18 08:30 Dose: 20 gm Metoprolol Succinate (Toprol Xl) 25 mg PO DAILY [facility] Last Admin: 02/25/18 08:30 Dose: 25 mg Ondansetron HCl (Zofran Inj) 4 mg IVP Q6 PRN PRN Reason: Nausea/Vomiting Oxycodone HCl (Oxycodone Immediate Release Tab) 20 mg PO Q6 PRN PRN Reason: Pain, severe (8-10) Last Admin: 02/25/18 08:33 Dose: 20 mg Pantoprazole Sodium (Protonix Ec Tab) 40 mg PO DAILY [facility] Last Admin: 10/17/18 08:30 Dose: 40 mg Raltegravir (Isentress) 400 mg PO BID [facility]; Protocol Last Admin: 02/25/18 08:29 Dose: 400 mg - Labs Labs: 02/21/18 06:50 02/20/18 05:50 - Extremities Exam Additional comments: L hip: dressings CDI, mild thigh swelling improved, no drainage, no erythema sensation intact SP/DP/TN motor intact EHL/FHL/G, +4/5 TA pedal pulses intact comps soft NT b/l Assessment and Plan (1) Status post left hip replacement Assessment & Plan: POD#9 s/p L FRANCISCO JAVIER -DVT ppx -PT/OT WBAT -orthopedically stable -above d/w Dr. Su in agreement Status: Acute
[2018-02-25 14:39] LABS: SQUAMOUS EPITHIAL 3 /hpf (0-5); URINE BACTERIA MOD (<OCC); URINE BILIRUBIN NEGATIVE (NEGATIVE); URINE BLOOD MODERATE (NEGATIVE); URINE CLARITY TURBID (Clear); URINE COLOR AMBER (YELLOW); URINE GLUCOSE (UA) NEG (Normal); URINE LEUKOCYTE ESTERASE LARGE Leu/uL (Negative); URINE PROTEIN 100 mg/dL (NEGATIVE); URINE UROBILINOGEN 0.2-1.0 mg/dL (0.2-1.0); WBC CLUMPS MANY /hpf
[2018-02-26] MEDS: Enoxaparin 40 mg Syringe SC SCH (08:36)
[2018-02-26] MEDS: Metoprolol Succinate 25 mg XL Tab PO SCH (08:37)
[2018-02-26] MEDS: ETRAVIRINE 200 MG PO SCH ×2 (08:38→17:27)
[2018-02-26] MEDS: Pantoprazole 40 mg EC Tab PO SCH (08:38)
[2018-02-26] MEDS: oxyCODONE 10 mg Immediate Release Tab PO PRN ×2 (08:40→16:56)
--- NOTE | 2018-02-26 09:49 | CP.PCM.PN ---
<Carlos Ireland - Last Filed: 02/26/18 09:46> Subjective - Date & Time of Evaluation Date of Evaluation: 02/26/18 Time of Evaluation: 09:46 - Subjective Subjective: 67 y/o female patient was seen and evaluated in TCU. Patient has PMHx of HIV (according to patient, undetectable viral load, on antiretrovirals), HTN and osteoarthritis. Patient underwent Left Hip Arthroplasty,02/[address] Su. Patient is participating in physical therapy, and states her pain has significantly improved. Patient is complaining or urinary burning/retention and a mild cough. Patient states she continues to use the incentive spirometer. Patient denies chest pain, SOB, nausea, vomiting, or fever. Objective - Vital Signs/Intake and Output Vital Signs (last 24 hours): Temp Pulse Resp BP Pulse Ox 98.2 F 88 20 126/66 96 02/26/18 08:08 02/26/18 08:37 02/26/18 08:08 02/26/18 08:37 02/26/18 08:08 - Medications Medications: Current Medications Acetaminophen (Tylenol 325mg Tab) 650 mg PO Q4 PRN PRN Reason: Fever 101 degrees fahrenheit Last Admin: 02/22/18 02:09 Dose: 650 mg Ciprofloxacin (Cipro) 500 mg PO DAILY [facility]; Protocol Last Admin: 02/26/18 08:38 Dose: 500 mg Docusate Sodium (Colace) 100 mg PO BID [facility] Last Admin: 02/26/18 08:37 Dose: 100 mg Enoxaparin Sodium (Lovenox) 40 mg SC DAILY [facility]; Protocol Last Admin: 02/26/18 08:36 Dose: 40 mg Ferrous Sulfate (Feosol) 325 mg PO TID [facility] Last Admin: 02/26/18 08:37 Dose: 325 mg Folic Acid (Folic Acid) 1 mg PO DAILY [facility] Last Admin: 02/26/18 08:37 Dose: 1 mg Gabapentin (Neurontin) 400 mg PO DAILY [facility] Last Admin: 02/26/18 08:37 Dose: 400 mg Home Med (Etravirine [Intelence]) 200 mg PO BIDPC [facility] Last Admin: 02/26/18 08:38 Dose: 200 mg Lactulose (Enulose) 20 gm PO DAILY PRN PRN Reason: Constipation Last Admin: 02/25/18 08:30 Dose: 20 gm Metoprolol Succinate (Toprol Xl) 25 mg PO DAILY [facility] Last Admin: 02/26/18 08:37 Dose: 25 mg Ondansetron HCl (Zofran Inj) 4 mg IVP Q6 PRN PRN Reason: Nausea/Vomiting Oxycodone HCl (Oxycodone Immediate Release Tab) 20 mg PO Q6 PRN PRN Reason: Pain, severe (8-10) Last Admin: 02/26/18 08:40 Dose: 20 mg Pantoprazole Sodium (Protonix Ec Tab) 40 mg PO DAILY [facility] Last Admin: 02/26/18 08:38 Dose: 40 mg Raltegravir (Isentress) 400 mg PO BID [facility]; Protocol Last Admin: 02/26/18 08:37 Dose: 400 mg - Labs Labs: 02/21/18 06:50 02/20/18 05:50 - Constitutional Appears: Well, Non-toxic, No Acute Distress - Head Exam Head Exam: ATRAUMATIC, NORMOCEPHALIC - ENT Exam ENT Exam: Mucous Membranes Moist - Neck Exam Neck Exam: Full ROM. absent: Lymphadenopathy - Respiratory Exam Respiratory Exam: Clear to Ausculation Bilateral, NORMAL BREATHING PATTERN. absent: Rales, Rhonchi, Wheezes - Cardiovascular Exam Cardiovascular Exam: REGULAR RHYTHM, RRR, +S1, +S2. absent: JVD - GI/Abdominal Exam GI & Abdominal Exam: Soft, Normal Bowel Sounds. absent: Firm, Guarding, Rigid - Neurological Exam Neurological Exam: Alert, Awake, Oriented x3 - Psychiatric Exam Psychiatric exam: Normal Affect, Normal Mood - Skin Skin Exam: Normal Color Assessment and Plan - Assessment and Plan (Free Text) Assessment: 67 y/o female s/p left hip arthroplasty 02/17/18, currently in TCU for for Rehabilitation Plan: 1) S/p Left Hip Replacement - Pain controlled - Patient tolerating PT- continue PT/OT, ambulating with rolling walker 2) HTN - chronic, controlled - hold HCTZ and ALEJANDRA due to IGNACIO and dehydration - continue Metoprolol 3) HIV - chronic, controlled - Continue home medications 4) Urinary Tract Infection - UA: positive nitrates, RBC 24, WBC many high, microscopic WBC 1384, bacteria moderate H - Urine C&S: Pending - Pending Infectious Disease evaluation- Abx recommendations appreciated 5) DVT prophylaxis - Lovenox 40 mg SC DAILY <Mckeon,Quan D - Last Filed: 02/26/18 13:26> Objective - Vital Signs/Intake and Output Vital Signs (last 24 hours): Temp Pulse Resp BP Pulse Ox 98.2 F 88 20 126/66 96 02/26/18 08:08 02/26/18 08:37 02/26/18 08:08 02/26/18 08:37 02/26/18 08:08 - Medications Medications: Current Medications Acetaminophen (Tylenol 325mg Tab) 650 mg PO Q4 PRN PRN Reason: Fever 101 degrees fahrenheit Last Admin: 02/22/18 02:09 Dose: 650 mg Ciprofloxacin (Cipro) 500 mg PO DAILY [facility]; Protocol Last Admin: 02/26/18 08:38 Dose: 500 mg Ciprofloxacin (Cipro) 250 mg PO Q12 [facility]; Protocol Docusate Sodium (Colace) 100 mg PO BID [facility] Last Admin: 02/26/18 08:37 Dose: 100 mg Enoxaparin Sodium (Lovenox) 40 mg SC DAILY [facility]; Protocol Last Admin: 02/26/18 08:36 Dose: 40 mg Ferrous Sulfate (Feosol) 325 mg PO TID [facility] Last Admin: 02/26/18 12:38 Dose: 325 mg Folic Acid (Folic Acid) 1 mg PO DAILY [facility] Last Admin: 02/26/18 08:37 Dose: 1 mg Gabapentin (Neurontin) 400 mg PO DAILY [facility] Last Admin: 02/26/18 08:37 Dose: 400 mg [facility] Med [facility] Last Admin: 02/26/18 08:38 Dose: 200 mg Lactulose (Enulose) 20 gm PO DAILY PRN PRN Reason: Constipation Last Admin: 02/25/18 08:30 Dose: 20 gm Metoprolol Succinate (Toprol Xl) 25 mg PO DAILY [facility] Last Admin: 02/26/18 08:37 Dose: 25 mg Ondansetron HCl (Zofran Inj) 4 mg IVP Q6 PRN PRN Reason: Nausea/Vomiting Oxycodone HCl (Oxycodone Immediate Release Tab) 20 mg PO Q6 PRN PRN Reason: Pain, severe (8-10) Last Admin: 02/26/18 08:40 Dose: 20 mg Pantoprazole Sodium (Protonix Ec Tab) 40 mg PO DAILY [facility] Last Admin: 02/26/18 08:38 Dose: 40 mg Raltegravir (Isentress) 400 mg PO BID [facility]; Protocol Last Admin: 02/26/18 08:37 Dose: 400 mg - Labs Labs: 02/21/18 06:50 02/20/18 05:50 Attending/Attestation - Attestation I have personally seen and examined this patient.: Yes I have fully participated in the care of the patient.: Yes I have reviewed all pertinent clinical information, including history, physical exam and plan: Yes Notes (Text): 02/26/18 13:25 Patient seen and examined with the resident. Admitted feeling better and improving with therapy. Still need pain medication prior to therapy.
--- NOTE | 2018-02-26 12:58 | CP.PCM.PN ---
Subjective - Date & Time of Evaluation Date of Evaluation: 02/26/18 Time of Evaluation: 10:00 - Subjective Subjective: Patient seen and examined at bedside. Pain is well controlled. Tolerating PT well. Found to have UTI after c/o dysuria yesterday. Negative UA preop. Placed on abx, awaiting urine cx. Scheduled to discharge home tomorrow once placed on appropriate abx. Denies CP/SOB/fever/GUPTA. Objective - Vital Signs/Intake and Output Vital Signs (last 24 hours): Temp Pulse Resp BP Pulse Ox 98.2 F 88 20 126/66 96 02/26/18 08:08 02/26/18 08:37 02/26/18 08:08 02/26/18 08:37 02/26/18 08:08 - Medications Medications: Current Medications Acetaminophen (Tylenol 325mg Tab) 650 mg PO Q4 PRN PRN Reason: Fever 101 degrees fahrenheit Last Admin: 02/22/18 02:09 Dose: 650 mg Ciprofloxacin (Cipro) 500 mg PO DAILY [facility]; Protocol Last Admin: 02/26/18 08:38 Dose: 500 mg Ciprofloxacin (Cipro) 250 mg PO Q12 [facility]; Protocol Docusate Sodium (Colace) 100 mg PO BID [facility] Last Admin: 02/26/18 08:37 Dose: 100 mg Enoxaparin Sodium (Lovenox) 40 mg SC DAILY [facility]; Protocol Last Admin: 02/26/18 08:36 Dose: 40 mg Ferrous Sulfate (Feosol) 325 mg PO TID [facility] Last Admin: 02/26/18 12:38 Dose: 325 mg Folic Acid (Folic Acid) 1 mg PO DAILY [facility] Last Admin: 02/26/18 08:37 Dose: 1 mg Gabapentin (Neurontin) 400 mg PO DAILY [facility] Last Admin: 02/26/18 08:37 Dose: 400 mg Home Med (Etravirine [Intelence]) 200 mg PO BIDPC [facility] Last Admin: 02/26/18 08:38 Dose: 200 mg Lactulose (Enulose) 20 gm PO DAILY PRN PRN Reason: Constipation Last Admin: 02/25/18 08:30 Dose: 20 gm Metoprolol Succinate (Toprol Xl) 25 mg PO DAILY [facility] Last Admin: 02/26/18 08:37 Dose: 25 mg Ondansetron HCl (Zofran Inj) 4 mg IVP Q6 PRN PRN Reason: Nausea/Vomiting Oxycodone HCl (Oxycodone Immediate Release Tab) 20 mg PO Q6 PRN PRN Reason: Pain, severe (8-10) Last Admin: 02/26/18 08:40 Dose: 20 mg Pantoprazole Sodium (Protonix Ec Tab) 40 mg PO DAILY [facility] Last Admin: 02/26/18 08:38 Dose: 40 mg Raltegravir (Isentress) 400 mg PO BID [facility]; Protocol Last Admin: 02/26/18 08:37 Dose: 400 mg - Labs Labs: 02/21/18 06:50 02/20/18 05:50 - Extremities Exam Additional comments: L hip: dressings CDI, mild thigh swelling continues to improve, no drainage, no erythema sensation intact SP/DP/TN motor intact EHL/FHL/G, +4/5 TA pedal pulses intact comps soft NT b/l Assessment and Plan (1) Status post left hip replacement Assessment & Plan: POD#10 s/p L FRANCISCO JAVIER -DVT ppx -PT/OT WBAT -orthopedically stable for discharge once placed on appropriate abx as per ID -above d/w Dr. Su in agreement Status: Acute
--- NOTE | 2018-02-26 18:43 | CP.PCM.PN ---
Subjective - Date & Time of Evaluation Date of Evaluation: 02/26/18 Time of Evaluation: 18:42 - Subjective Subjective: I D NOTE PATIENT IS S/P HIP REPLACEMENT(ANTERIOR APPROACH) WHO IS NOTED TO SIGNIFICANT BACTERIA IN URINE. PATIENT IS COMPLAINING OF POLYURIA,BURNING,AND PRESSURE ON URINATION.SHE STATES THAT IT HAS IMPROVED SINCE RECEIVING DOSE OF CIPRO. WE AWAIT CULTURES SHE WILL RECEIVE RENAL ADJUSTED DOSE OF CIPROFLOXIN Objective - Vital Signs/Intake and Output Vital Signs (last 24 hours): Temp Pulse Resp BP Pulse Ox 98.1 F 74 20 127/63 96 02/26/18 17:28 02/26/18 17:28 02/26/18 17:28 02/26/18 17:28 02/26/18 17:28 - Medications Medications: Current Medications Acetaminophen (Tylenol 325mg Tab) 650 mg PO Q4 PRN PRN Reason: Fever 101 degrees fahrenheit Last Admin: 02/22/18 02:09 Dose: 650 mg Ciprofloxacin (Cipro) 500 mg PO DAILY [facility]; Protocol Last Admin: 02/26/18 08:38 Dose: 500 mg Ciprofloxacin (Cipro) 250 mg PO Q12 [facility]; Protocol Docusate Sodium (Colace) 100 mg PO BID [facility] Last Admin: 02/26/18 16:57 Dose: 100 mg Enoxaparin Sodium (Lovenox) 40 mg SC DAILY [facility]; Protocol Last Admin: 02/26/18 08:36 Dose: 40 mg Ferrous Sulfate (Feosol) 325 mg PO TID [facility] Last Admin: 02/26/18 16:57 Dose: 325 mg Folic Acid (Folic Acid) 1 mg PO DAILY [facility] Last Admin: 02/26/18 08:37 Dose: 1 mg Gabapentin (Neurontin) 400 mg PO DAILY [facility] Last Admin: 02/26/18 08:37 Dose: 400 mg [facility] Last Admin: 02/26/18 17:27 Dose: 200 mg Lactulose (Enulose) 20 gm PO DAILY PRN PRN Reason: Constipation Last Admin: 02/25/18 08:30 Dose: 20 gm Metoprolol Succinate (Toprol Xl) 25 mg PO DAILY [facility] Last Admin: 02/26/18 08:37 Dose: 25 mg Ondansetron HCl (Zofran Inj) 4 mg IVP Q6 PRN PRN Reason: Nausea/Vomiting Oxycodone HCl (Oxycodone Immediate Release Tab) 20 mg PO Q6 PRN PRN Reason: Pain, severe (8-10) Last Admin: 02/26/18 16:56 Dose: 20 mg Pantoprazole Sodium (Protonix Ec Tab) 40 mg PO DAILY [facility] Last Admin: 02/26/18 08:38 Dose: 40 mg Raltegravir (Isentress) 400 mg PO BID [facility]; Protocol Last Admin: 02/26/18 16:58 Dose: 400 mg - Labs Labs: 02/21/18 06:50 02/20/18 05:50
[2018-02-27] MEDS: oxyCODONE 10 mg Immediate Release Tab PO PRN ×3 (05:43→19:16)
[2018-02-27] MEDS: Metoprolol Succinate 25 mg XL Tab PO SCH (08:20)
[2018-02-27] MEDS: ETRAVIRINE 200 MG PO SCH ×2 (08:20→17:05)
[2018-02-27] MEDS: Enoxaparin 40 mg Syringe SC SCH (08:20)
[2018-02-27] MEDS: Pantoprazole 40 mg EC Tab PO SCH (08:21)
--- NOTE | 2018-02-27 10:04 | CP.PCM.PN ---
Subjective - Date & Time of Evaluation Date of Evaluation: 02/27/18 Time of Evaluation: 10:02 - Subjective Subjective: Patient states she feels great. She is very happy with her progress. She is anxious to go home. No new complaints. Objective - Vital Signs/Intake and Output Vital Signs (last 24 hours): Temp Pulse Resp BP Pulse Ox 97.5 F L 79 20 125/59 L 99 02/27/18 08:34 02/27/18 08:34 02/27/18 08:34 02/27/18 08:34 02/27/18 08:34 - Medications Medications: Current Medications Acetaminophen (Tylenol 325mg Tab) 650 mg PO Q4 PRN PRN Reason: Fever 101 degrees fahrenheit Last Admin: 02/22/18 02:09 Dose: 650 mg Ciprofloxacin (Cipro) [address] [facility]; Protocol Last Admin: 02/26/18 08:38 Dose: 500 mg Ciprofloxacin (Cipro) [address] [facility]; Protocol Last Admin: 02/27/18 08:20 Dose: 250 mg Docusate Sodium (Colace) [address] [facility] Last Admin: 02/27/18 08:21 Dose: 100 mg Enoxaparin Sodium (Lovenox) [address] [facility]; Protocol Last Admin: 02/27/18 08:20 Dose: 40 mg Ferrous Sulfate (Feosol) [address] [facility] Last Admin: 02/27/18 08:21 Dose: 325 mg Folic Acid (Folic Acid) [address] [facility] Last Admin: 02/27/18 08:21 Dose: 1 mg Gabapentin (Neurontin) [address] [facility] Last Admin: 02/27/18 08:21 Dose: 400 mg Home Med [facility] [Intelence[facility] Last Admin: 02/27/18 08:20 Dose: 200 mg Lactulose (Enulose) 20 gm PO DAILY PRN PRN Reason: Constipation Last Admin: 02/25/18 08:30 Dose: 20 gm Metoprolol Succinate (Toprol Xl) [address] [facility] Last Admin: 02/27/18 08:20 Dose: 25 mg Ondansetron HCl (Zofran Inj) 4 mg IVP Q6 PRN PRN Reason: Nausea/Vomiting Oxycodone HCl (Oxycodone Immediate Release Tab) 20 mg PO Q6 PRN PRN Reason: Pain, severe (8-10) Last Admin: 02/27/18 05:43 Dose: 20 mg Pantoprazole Sodium (Protonix Ec Tab) 40 mg PO DAILY [facility] Last Admin: 02/27/18 08:21 Dose: 40 mg Raltegravir (Isentress) 400 mg PO BID [facility]; Protocol Last Admin: 02/27/18 08:20 Dose: 400 mg - Labs Labs: 02/21/18 06:50 02/20/18 05:50 - Extremities Exam Additional comments: still complains of numbness to medial and lateral lower leg. Still with noted weakness to hip flexion, knee ext and ankle DF slightly improved. +DP/PT pulses calves soft NT neg homans Assessment and Plan (1) Osteoarthritis of left hip Assessment & Plan: POD#11 s/p left THR ortho stable keep incision clean and dry until danilo removed f/u Dr. Su in office as scheduled cont VTE proph d/w Dr. Su, agrees with above Status: Chronic
[2018-02-27] MEDS ORDERED: Alum-Mag Hydrox-Simethicone Susp (30 mL) PO ONE (19:01)
[2018-02-27] MEDS ORDERED: Magnesium Hydroxide Susp 30 ml UD PO PRN (22:47)
[2018-02-28] MEDS: oxyCODONE 10 mg Immediate Release Tab PO PRN ×2 (02:35→08:29)
[2018-02-28] MEDS: Enoxaparin 40 mg Syringe SC SCH (08:21)
[2018-02-28] MEDS: Metoprolol Succinate 25 mg XL Tab PO SCH (08:22)
[2018-02-28] MEDS: Pantoprazole 40 mg EC Tab PO SCH (08:23)
[2018-02-28 08:24] VITALS: BP 115/67; PULSE 85
[2018-02-28] MEDS: ETRAVIRINE 200 MG PO SCH (08:24)
[2018-02-28 09:03] VITALS: TEMP 98.1; O2SAT 94
--- NOTE | 2018-02-28 11:20 | CP.PCM.DIS ---
Provider - Provider Date of Admission: 02/18/18 18:56 Attending physician: Des Donis MD Primary care physician: Tej Su III, MD Consults: Dr Georges Addison Time Spent in preparation of Discharge (in minutes): 25 Diagnosis - Discharge Diagnosis (1) Status post left hip replacement Status: Acute Comment: pain controlled with medication. continue PT at home (2) HTN (hypertension) Status: Chronic Comment: BP controlled. continue Metoprolol succinate 25mg PO daily (3) HIV (human immunodeficiency virus infection) Status: Chronic Comment: stable. continue HIV meds (4) UTI (urinary tract infection) Status: Acute Comment: urine culture grew E coli. continue Cipro 250mg PO BID for 7 days Hospital Course - Lab Results Lab Results: Micro Results 02/25/18 21:50 Urine,Clean Catch Urine Culture - Final Escherichia Coli Most Recent Lab Values WBC 9.8 K/uL (4.8-10.8) 02/21/18 06:50 RBC 3.11 Mil/uL (3.80-5.20) L 02/21/18 06:50 Hgb 8.2 g/dL (12.0-16.0) L 02/21/18 06:50 Hct 25.0 % (34.0-47.0) L 02/21/18 06:50 MCV 80.4 fl (81.0-99.0) L 02/21/18 06:50 MCH 26.4 pg (27.0-31.0) L 02/21/18 06:50 MCHC 32.9 g/dL (33.0-37.0) L 02/21/18 06:50 RDW 15.1 % (11.5-14.5) H 02/21/18 06:50 Plt Count 241 K/uL (130-400) 02/21/18 06:50 Sodium 136 mmol/l (132-148) 02/20/18 05:50 Potassium 3.9 MMOL/L (3.6-5.0) 02/20/18 05:50 Chloride 101 mmol/L (98-107) 02/20/18 05:50 Carbon Dioxide 32 mmol/L (22-30) H 02/20/18 05:50 Anion Gap 7 (10-20) L 02/20/18 05:50 BUN 25 mg/dl (7-17) H 02/20/18 05:50 Creatinine 1.4 mg/dl (0.7-1.2) H 02/20/18 05:50 Est GFR ( Amer) 45 02/20/18 05:50 Est GFR (Non-Af Amer) 37 02/20/18 05:50 Random Glucose 104 mg/dL (65-105) 02/20/18 05:50 Calcium 8.1 mg/dL (8.4-10.2) L 02/20/18 05:50 Total Bilirubin 0.7 mg/dl (0.2-1.3) 02/19/18 06:52 AST 38 U/L (14-36) H 02/19/18 06:52 ALT 19 U/L (9-52) 02/19/18 06:52 Alkaline Phosphatase 83 U/L (38-126) 02/19/18 06:52 Total Protein 6.2 G/DL (6.3-8.2) L 02/19/18 06:52 Albumin 3.0 g/dL (3.5-5.0) L 02/19/18 06:52 Globulin 3.2 gm/dL (2.2-3.9) 02/19/18 06:52 Albumin/Globulin Ratio 0.9 (1.0-2.1) L 02/19/18 06:52 Urine Color [place] (YELLOW) 02/25/18 14:00 Urine Clarity Turbid (Clear) 02/25/18 14:00 Urine pH 5.0 (5.0-8.0) 02/25/18 14:00 Ur Specific [place] 1.018 (1.003-1.030) 02/25/18 14:00 Urine Protein 100 mg/dL (NEGATIVE) 02/25/18 14:00 Urine Glucose (UA) Neg mg/dL (Normal) 02/25/18 14:00 Urine Ketones Negative mg/dL (NEGATIVE) 02/25/18 14:00 Urine Blood Moderate (NEGATIVE) 02/25/18 14:00 Urine Nitrate Positive (NEGATIVE) H 02/25/18 14:00 Urine Bilirubin Negative (NEGATIVE) 02/25/18 14:00 Urine Urobilinogen 0.2-1.0 mg/dL (0.2-1.0) 02/25/18 14:00 Ur Leukocyte Esterase Large [place]/uL (Negative) 02/25/18 14:00 Urine RBC (Auto) 24 /hpf (0-3) H 02/25/18 14:00 Urine WBC Clumps (Auto) Many /hpf (NONE) H 02/25/18 14:00 Urine Microscopic WBC 1384 /hpf (0-5) H 02/25/18 14:00 Ur Squamous Epith Cells 3 /hpf (0-5) 02/25/18 14:00 Urine Bacteria Mod (<OCC) H 02/25/18 14:00 - Hospital Course Hospital Course: 67 yo female with history of HIV, HTN and OA had left THR on 02/17/18 after failing conservative management. Post surgery was uneventful. She was transferred to TCU for therapy and did well. Discharge Exam - Head Exam Head Exam: ATRAUMATIC, NORMOCEPHALIC - Eye Exam Eye Exam: absent: Scleral icterus - ENT Exam ENT Exam: Mucous Membranes Moist - Respiratory Exam Respiratory Exam: absent: Rales, Rhonchi, Wheezes, Respiratory Distress - Cardiovascular Exam Cardiovascular Exam: REGULAR RHYTHM, +S1, +S2 - GI/Abdominal Exam GI & Abdominal Exam: Soft. absent: Tenderness - Rectal Exam Rectal Exam: Deferred - Neurological Exam Neurological exam: Alert, Oriented x3 - Psychiatric Exam Psychiatric exam: Normal Affect - Skin Skin Exam: Dry, Intact Discharge Plan - Discharge Medications Prescriptions: Aspirin [Adult Aspirin] 81 mg PO BID #30 tablet. Ciprofloxacin [Cipro] 250 mg PO BID #14 tab - Follow Up Plan Condition: GOOD Disposition: HOME/ ROUTINE Instructions: Total Hip Replacement (DC) Referrals: Tej Su III, MD [Primary Care Provider] -
== END 2018-02-28 13:15 | disposition home or self-care (01) | DRG 560 ==
LOC: H.TCU 18:56
PROVIDERS: ADMIT Hospitalist; ATTEND Hospitalist
PROC: F07Z9FZ Gait Training/Functional Ambulation Treatment using Assistive, Adaptive, Supportive or Protective Equipment (ICD-10-PCS; principal; 2018-02-18)
PROC: F07M6FZ Therapeutic Exercise Treatment of Musculoskeletal System - Whole Body using Assistive, Adaptive, Supportive or Protective Equipment (ICD-10-PCS; 2018-02-18)
PROC: F08Z4FZ Home Management Treatment using Assistive, Adaptive, Supportive or Protective Equipment (ICD-10-PCS; 2018-02-18)
DX: Z47.1 Aftercare following joint replacement surgery (principal); N17.9 Acute kidney failure, unspecified; N39.0 Urinary tract infection, site not specified; Z96.642 Presence of left artificial hip joint; H26.9 Unspecified cataract; K29.70 Gastritis, unspecified, without bleeding; M54.9 Dorsalgia, unspecified; Z21 Asymptomatic human immunodeficiency virus [HIV] infection status; E86.0 Dehydration; I10 Essential (primary) hypertension; K59.00 Constipation, unspecified; M16.12 Unilateral primary osteoarthritis, left hip; M19.042 Primary osteoarthritis, left hand; M81.0 Age-related osteoporosis without current pathological fracture; Z86.73 Personal history of transient ischemic attack (TIA), and cerebral infarction without residual deficits; Z87.891 Personal history of nicotine dependence; R05 Cough; R35.8 Other polyuria